=== PATIENT | male | born 1950 | race Caucasian/White ===

== ENCOUNTER → 2016-08-12 | Outpatient (REF) | payer MEDICARE, OTHER ==
[~2016-08-12] MED LIST: /ADVA50050 INH; /METO25TAB PO; /MOXI40TA OR; /OXYC15TA OR; /TIOT18INH INH; ACET-654 PO; ADV250INH INH; ALBU17IN INH; ALBU17IN2 INH; ALBU83IN IN; ALBUTEROL INH; ALBUTEROL LIQ INH; AMBI10TA PO; AMLO10TA OR; ASPI1TAB PO; CATA0.2T PO; CHAN0.5P6 PO; CLON-404 PO; CLON0.3T PO; COLA100C PO; COMBVENT INH; COMBVENT PO; DIAZ5TAB PO; DUONSOL INH; ENAL20TA PO; FURO40TA2 OR; HARV1TAB PO; HYDR-4266 PO; HYDR25TA PO; IPRASOL4 INH; LASI40TA OR; LASI40TA PO; LISI30TA4 PO; LISI40TA PO; LISI40TAB PO; LOPR100T PO; METO25TAB PO; METO50TA2 PO; OXYC15TA76 PO; OXYC5CAP4 OR; OXYC60TA PO; OXYCODONE PO; PANT40TA2 PO; POTA20TA2 OR; PRED10TA PO; PRED10TA2 OR; PRED20TA OR; PRED50TA OR; PRED5TAB PO; PROVENTIL INH; PROZ40CA PO; RANI150T PO; SOMA350T OR; SPIR25TA2 PO; STRI1AER2 IN; VASO20TA PO; XANA0.5T OR
[2016-08-12 18:18] LABS: INR 1.04
[2016-08-12 18:40] LABS: ALBUMIN 3.7 GM/DL (3.2-5.2); ALBUMIN/GLOBULIN RATIO 1.03 (1.00-1.93); ALKALINE PHOSPHATASE 80 U/L (45-117); ALT/SGPT 54 U/L (12-78); ANION GAP 9 MEQ/L (8-16); AST/SGOT 45 U/L (15-37); BLOOD UREA NITROGEN 18 MG/DL (7-18); CALCIUM LEVEL 9.1 MG/DL (8.8-10.2); CARBON DIOXIDE LEVEL 27 MEQ/L (21-32); CHLORIDE LEVEL 103 MEQ/L (98-107); CREATININE FOR GFR 1.19 MG/DL (0.70-1.30); FREE T4 1.51 NG/DL (0.76-1.46); GLOMERULAR FILTRATION RATE > 60.0 (>49); GLUCOSE, FASTING 95 MG/DL (80-110); SODIUM LEVEL 139 MEQ/L (136-145); TOTAL PROTEIN 7.3 GM/DL (6.4-8.2)
[2016-08-12 19:34] LABS: MEAN CORPUSCULAR HEMOGLOBIN 27.5 pg (27.0-33.0); MEAN CORPUSCULAR HGB CONC 32.3 g/dl (32.0-36.5); MEAN CORPUSCULAR VOLUME 85.2 fl (80.0-96.0); WHITE BLOOD COUNT 8.5 K/mm3 (4.0-10.0)
[2016-08-12 21:19] LABS: ANISOCYTOSIS 1+; BANDS 1 % (< 11); BASOPHILS 1 % (0-4); OVALOCYTES 1+; POIKILOCYTOSIS 1+
== END ==
LOC: M SFHCLERA 10:28
PROVIDERS: ATTEND Family Medicine
DX: R53.83 Other fatigue (principal); K21.9 Gastro-esophageal reflux disease without esophagitis; B18.2 Chronic viral hepatitis C; Z79.82 Long term (current) use of aspirin; Z79.899 Other long term (current) drug therapy

== ENCOUNTER → 2016-08-12 | Outpatient (CLI) | payer MEDICARE, OTHER ==
[~2016-08-12] MED LIST changes: -COLA100C PO; +COLA100C3 PO
--- NOTE | 2016-08-12 11:11 | REP ---
Clinical: Chest pain. Fatigue. Technique: PA and lateral. Comparison: 02/20/2016. Findings: Mediastinum and cardiac silhouette normal. Lung hirsch clear. No acute consolidation, effusion, or pneumothorax. Skeletal structures intact. Impression: No acute cardiopulmonary process or focal consolidation. Signed by Reyes Coe MD 08/12/2016 11:02 A
== END ==
LOC: M LRY 10:41
PROVIDERS: ATTEND Family Medicine
DX: R53.83 Other fatigue (principal); Z79.52 Long term (current) use of systemic steroids; Z79.82 Long term (current) use of aspirin; Z79.891 Long term (current) use of opiate analgesic; Z79.899 Other long term (current) drug therapy; K21.9 Gastro-esophageal reflux disease without esophagitis; B18.2 Chronic viral hepatitis C
CPT/HCPCS: 71020; 80053; 84439; 84443; 85007; 85027; 85610; 85730; G0463

== ENCOUNTER → 2016-08-27 | Outpatient (REF) | payer MEDICARE, OTHER ==
[2016-08-27 21:41] LABS: ALBUMIN 3.4 GM/DL (3.2-5.2); ALBUMIN/GLOBULIN RATIO 1.03 (1.00-1.93); BILIRUBIN,DIRECT 0.2 MG/DL (0.0-0.2); BILIRUBIN,TOTAL 0.5 MG/DL (0.2-1.0); TOTAL PROTEIN 6.7 GM/DL (6.4-8.2)
[2016-08-27 21:56] LABS: CARCINOEMBRYONIC ANTIGEN 1.1 NG/ML (<2.5)
== END ==
LOC: M SFHCLERA 14:42
PROVIDERS: ATTEND Family Medicine
DX: R16.0 Hepatomegaly, not elsewhere classified (principal); Z79.82 Long term (current) use of aspirin; Z79.52 Long term (current) use of systemic steroids; Z79.891 Long term (current) use of opiate analgesic; Z79.899 Other long term (current) drug therapy
CPT/HCPCS: 80076; 82105; 82378; G0463

== ENCOUNTER 2016-10-05 12:49 | Emergency (ER) | payer MEDICARE, OTHER ==
[~2016-10-05] VITALS: Ht 170.2 cm; Wt 91.2 kg
[2016-10-05] MEDS ORDERED: PRIL20CA9 PO (13:17)
[2016-10-05] MEDS ORDERED: MIRA33504 PO (13:17)
[2016-10-05] MEDS ORDERED: HYDR-4266 PO (13:17)
[2016-10-05] MEDS ORDERED: MILK1CAP PO (13:17)
[2016-10-05] MEDS ORDERED: METO100T PO (13:17)
[2016-10-05] MEDS ORDERED: XANA0.25 PO (13:17)
[2016-10-05] MEDS ORDERED: LISI40TAB PO (13:17)
[2016-10-05 14:23] LABS: ALBUMIN 2.8 GM/DL (3.2-5.2); ALBUMIN/GLOBULIN RATIO 0.85 (1.00-1.93); ALKALINE PHOSPHATASE 74 U/L (45-117); ALT/SGPT 68 U/L (12-78); ANION GAP 7 MEQ/L (8-16); AST/SGOT 59 U/L (15-37); BILIRUBIN,DIRECT 0.2 MG/DL (0.0-0.2); BLOOD UREA NITROGEN 24 MG/DL (7-18); CALCIUM LEVEL 8.3 MG/DL (8.8-10.2); CARBON DIOXIDE LEVEL 28 MEQ/L (21-32); CHLORIDE LEVEL 95 MEQ/L (98-107); CREATININE FOR GFR 1.26 MG/DL (0.70-1.30); GLOMERULAR FILTRATION RATE > 60.0 (>49); GLUCOSE, FASTING 100 MG/DL (80-110); SODIUM LEVEL 130 MEQ/L (136-145); TOTAL PROTEIN 6.1 GM/DL (6.4-8.2)
[2016-10-05 14:29] LABS: POTASSIUM SERUM 5.4 MEQ/L (3.5-5.1)
[2016-10-05] MEDS ORDERED: NS 1,000 ML IV SCH (14:42)
[2016-10-05] MEDS ORDERED: DEXTROSE 50% 50 ML SYRINGE IV STA (14:42)
[2016-10-05 14:44] LABS: BASO % 0.1 % (0.0-1.0); EOS # 0.1 K/mm3 (0.0-0.50); EOS % 0.9 % (0.0-3.0); LARGE UNSTAINED CELL # 0.2 K/mm3 (0.0-0.4); LARGE UNSTAINED CELL % 1.6 % (0.0-4.0); LYMPH # 1.7 K/mm3 (1.5-4.5); MEAN CORPUSCULAR HEMOGLOBIN 28.8 pg (27.0-33.0); MEAN CORPUSCULAR HGB CONC 34.5 g/dl (32.0-36.5); MEAN CORPUSCULAR VOLUME 83.7 fl (80.0-96.0); MONO # 0.9 K/mm3 (0.0-0.8); NEUTROPHILS # 7.1 K/mm3 (1.8-7.7); NEUTROPHILS % 71.4 % (36.0-66.0); PLATELET COUNT, AUTOMATED 220 k/mm3 (150-450); RED CELL DISTRIBUTION WIDTH 13.7 % (11.5-14.5)
[2016-10-05] MEDS ORDERED: oxyCODONE 5MG TAB PO ONE (14:45)
[2016-10-05] MEDS ORDERED: CALCIUM GLUCONATE 1,000 MG in D5W MINI-BAG PLUS 100 ML IV ONE (14:45)
[2016-10-05] MEDS ORDERED: HumuLIN R (REGULAR) INSULIN (NovoLIN R) **100U/ML** PER UNIT IV ONE (14:45)
[2016-10-05] MEDS ORDERED: GASTROGRAFIN SOLUTION 30ML (Q9963) As Ordered ONE (14:50)
[2016-10-05] MEDS ORDERED: GASTROGRAFIN SOLUTION 30ML PO ONE (15:00)
[2016-10-05] MEDS ORDERED: GASTROGRAFIN SOLUTION 30ML (Q9963) PO ONE (15:30)
[2016-10-05] MEDS ORDERED: ISOVUE-370 76% 100ML VIAL (Q9967) As Ordered ONE (16:10)
--- NOTE | 2016-10-05 16:44 | REP ---
Clinical: Acute right-sided abdominal pain. Technique: Axial contrast enhanced images from the lung bases to the pubic symphysis using oral and 100 ml Isovue 370 intravenous contrast material with coronal and sagittal re-formations. Findings: Lung bases demonstrate chronic interstitial changes with suspected emphysematous disease and bronchiectasis. Atherosclerotic changes to the coronary arteries and mitral valve annulus. Irregular low density area within the right lobe of the liver with areas of central calcification as well as abnormal arterial enhancing vasculature extending from the periphery of the liver consistent with malignancy as per prior MRI dated 08/26/2016. Spleen, pancreas, bilateral adrenal glands and right kidney are normal. Left kidney includes 4.4 cm complex lower pole hypodense lesion possibly complex cyst. The gallbladder demonstrates prominent mural enhancement and subtle surrounding infiltration raising the possibility of acute cholecystitis. However, these findings may be secondary to the surrounding ill-defined changes of the liver which is suspected to be neoplastic in nature. Mildly prominent lymph nodes in the region of the jeovany hepatis and celiac axis measuring up to 15 mm short axis diameter are also identified and again consistent with underlying neoplasm. The enteric system demonstrates diffuse fecal stasis and possible constipation without obstruction. The pelvis demonstrates normal bladder and age appropriate prostate/seminal vesicles. 2.5 cm periumbilical fat-containing hernia noted. No ascites. No free air. Atherosclerotic changes of the aorta and vasculature noted without aneurysm. Musculoskeletal structures demonstrate degenerative changes and evidence for prior posterior lumbar fusion. Impression: 1. Ill-defined low density liver lesion within the right lobe demonstrating small calcifications and irregular arterial vasculature extending from the liver cortex and gallbladder along with upper abdominal adenopathy is compatible with underlying hepatic malignancy including hepatocellular disease and/or cholangiocarcinoma. 2. The gallbladder demonstrates mild mural enhancement and subtle pericholecystic infiltration which may be secondary to the above mentioned presumably primary hepatic malignancy. However, acute acalculous cholecystitis be excluded. 3. 4.3 cm left kidney lesion may represent complex cyst versus mass. 5. 2.5 cm periumbilical fat-containing hernia. Signed by Reyes Coe MD 10/05/2016 04:35 P
[2016-10-05 17:23] LABS: ANION GAP 6 MEQ/L (8-16); BLOOD UREA NITROGEN 24 MG/DL (7-18); CALCIUM LEVEL 8.3 MG/DL (8.8-10.2); CARBON DIOXIDE LEVEL 33 MEQ/L (21-32); CHLORIDE LEVEL 92 MEQ/L (98-107); CREATININE FOR GFR 1.21 MG/DL (0.70-1.30); GLOMERULAR FILTRATION RATE > 60.0 (>49); GLUCOSE, FASTING 80 MG/DL (80-110); POTASSIUM SERUM 3.8 MEQ/L (3.5-5.1); SODIUM LEVEL 131 MEQ/L (136-145)
[2016-10-05 18:10] VITALS: BP 124/80
--- NOTE | 2016-10-06 10:58 | ED PDOC ---
Post-Departure Follow-Up dr steven faxed formal report of ct abd/p for fu Jie Kendall MD October 06, 2016 10:58
--- NOTE | 2016-10-06 14:22 | ECGEPIP ---
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
== END 2016-10-05 18:13 | disposition home or self-care (01) ==
LOC: M ED 13:36
DX: C22.0 Liver cell carcinoma (principal); E87.5 Hyperkalemia; R93.5 Abnormal findings on diagnostic imaging of other abdominal regions, including retroperitoneum; R11.0 Nausea; I50.9 Heart failure, unspecified; I11.0 Hypertensive heart disease with heart failure; I25.10 Atherosclerotic heart disease of native coronary artery without angina pectoris; B19.20 Unspecified viral hepatitis C without hepatic coma; K74.60 Unspecified cirrhosis of liver; K21.9 Gastro-esophageal reflux disease without esophagitis; Z95.5 Presence of coronary angioplasty implant and graft; F17.200 Nicotine dependence, unspecified, uncomplicated; Z88.8 Allergy status to other drugs, medicaments and biological substances; Z88.0 Allergy status to penicillin; Z79.899 Other long term (current) drug therapy; Z79.891 Long term (current) use of opiate analgesic
CPT/HCPCS: 36415; 74177; 80048; 80076; 81001; 81002; 82550; 83690; 85025; 87086; 93005; 93041; 94760; 96374; 96375; 99285; J0610; Q9963; Q9967

== ENCOUNTER → 2016-10-29 | Outpatient (CLI) | payer MEDICARE ==
[~2016-10-29] MED LIST changes: +METO100T PO; +MILK1CAP PO; +MIRA33504 PO; +PRIL20CA9 PO; +XANA0.25 PO
[2016-10-29 11:18] LABS: BLOOD UREA NITROGEN 15 MG/DL (7-18); CREATININE FOR GFR 1.01 MG/DL (0.70-1.30); GLOMERULAR FILTRATION RATE > 60.0 (>49)
== END ==
LOC: M LAB 10:21
PROVIDERS: ATTEND Radiology Vascular & Interventional Radiology
DX: C22.0 Liver cell carcinoma (principal)

== ENCOUNTER → 2016-11-09 | Outpatient (REF) | payer MEDICARE, OTHER ==
[~2016-11-09] MED LIST changes: +AMLO5TAB2 PO; +ATOR1TAB21 PO; -CLON-404 PO; -COLA100C3 PO; +COLA100C5 PO; +DOXY-278 PO; +FURO20TA2 PO; +HYDR-3910 PO; -HYDR-4266 PO; +HYDR12CA PO; +LEVO750T13 PO; +METH4PACK; -METO100T PO; +METO100T5 PO; -METO50TA2 PO; +METO50TA7 PO; +MOTR200T44 PO; +PRED10TA2 PO; +SPIR1AER INH; +TIOT18INH INH
[2016-11-09 12:18] LABS: MEAN CORPUSCULAR HEMOGLOBIN 28.2 pg (27.0-33.0); MEAN CORPUSCULAR HGB CONC 33.1 g/dl (32.0-36.5); MEAN CORPUSCULAR VOLUME 85.2 fl (80.0-96.0); RED CELL DISTRIBUTION WIDTH 13.8 % (11.5-14.5); WHITE BLOOD COUNT 6.1 K/mm3 (4.0-10.0)
[2016-11-09 12:51] LABS: ALBUMIN 3.3 GM/DL (3.2-5.2); ALBUMIN/GLOBULIN RATIO 0.87 (1.00-1.93); ALKALINE PHOSPHATASE 76 U/L (45-117); ALT/SGPT 36 U/L (12-78); ANION GAP 9 MEQ/L (8-16); AST/SGOT 28 U/L (15-37); BILIRUBIN,TOTAL 0.5 MG/DL (0.2-1.0); BLOOD UREA NITROGEN 12 MG/DL (7-18); CALCIUM LEVEL 8.6 MG/DL (8.8-10.2); CARBON DIOXIDE LEVEL 25 MEQ/L (21-32); CHLORIDE LEVEL 107 MEQ/L (98-107); CREATININE FOR GFR 0.83 MG/DL (0.70-1.30); GLOMERULAR FILTRATION RATE > 60.0 (>49); GLUCOSE, FASTING 95 MG/DL (80-110); POTASSIUM SERUM 4.3 MEQ/L (3.5-5.1); SODIUM LEVEL 141 MEQ/L (136-145); TOTAL PROTEIN 7.1 GM/DL (6.4-8.2)
== END ==
LOC: M SFHCLERA 09:13
PROVIDERS: ATTEND Family Medicine
DX: C22.0 Liver cell carcinoma (principal)
CPT/HCPCS: 80053; 82105; 85027; G0463

== ENCOUNTER → 2016-11-22 | Outpatient (REF) | payer MEDICARE, OTHER ==
[2016-11-22 17:59] LABS: MEAN CORPUSCULAR HEMOGLOBIN 27.6 pg (27.0-33.0); MEAN CORPUSCULAR HGB CONC 32.4 g/dl (32.0-36.5); MEAN CORPUSCULAR VOLUME 85.5 fl (80.0-96.0); RED CELL DISTRIBUTION WIDTH 13.8 % (11.5-14.5); WHITE BLOOD COUNT 6.5 K/mm3 (4.0-10.0)
== END ==
LOC: M SFHCLERA 10:40
PROVIDERS: ATTEND Family Medicine
DX: D64.9 Anemia, unspecified (principal)

== ENCOUNTER → 2016-12-20 | Outpatient (REF) | payer MEDICARE, OTHER ==
[2016-12-20 20:46] LABS: ANION GAP 6 MEQ/L (8-16); BLOOD UREA NITROGEN 11 MG/DL (7-18); CALCIUM LEVEL 8.8 MG/DL (8.8-10.2); CARBON DIOXIDE LEVEL 33 MEQ/L (21-32); CHLORIDE LEVEL 102 MEQ/L (98-107); CREATININE FOR GFR 0.84 MG/DL (0.70-1.30); GLOMERULAR FILTRATION RATE > 60.0 (>49); GLUCOSE, FASTING 95 MG/DL (80-110); POTASSIUM SERUM 4.7 MEQ/L (3.5-5.1); SODIUM LEVEL 141 MEQ/L (136-145)
== END ==
LOC: M SFHCLERA 15:20
PROVIDERS: ATTEND Family Medicine
DX: I10 Essential (primary) hypertension (principal)
CPT/HCPCS: 80048; G0463

== ENCOUNTER → 2017-01-10 | Outpatient (REF) | payer MEDICARE, OTHER | LOC: M SFHCLERA 16:31 | PROVIDERS: ATTEND Family Medicine | DX: R30.0 Dysuria (principal) | CPT/HCPCS: 81001; 81002; 87086; G0463 ==

== ENCOUNTER 2017-01-25 17:13 | Emergency (ER) | payer MEDICARE ==
[~2017-01-25] VITALS: Ht 170.2 cm; Wt 87.7 kg
[~2017-01-25 17:13] MED LIST changes: -AMLO5TAB2 PO; -ATOR1TAB21 PO; -DOXY-278 PO; -FURO20TA2 PO; -HYDR12CA PO; -LEVO750T13 PO; -METH4PACK; -MOTR200T44 PO; -PRED10TA2 PO; -SPIR1AER INH; -TIOT18INH INH
[2017-01-25] MEDS ORDERED: NS 1,000 ML IV SCH (17:50)
[2017-01-25] MEDS ORDERED: ASPIRIN 81 MG CHEW TABLET PO ONE (18:00)
[2017-01-25] MEDS ORDERED: GI COCKTAIL 50ML BTL(HYOSCYAMINE/MAALOX/LIDOCAINE VISCOUS)(1:3:1) PO ONE (18:00)
[2017-01-25 18:02] LABS: VENOUS BASE EXCESS 3.3 (-2.0-2.0); VENOUS O2 SATURATION 75.7 % (60.0-80.0); VENOUS PARTIAL PRESSURE CO2 57.2 mmHg (38.0-50.0); VENOUS PARTIAL PRESSURE O2 41.5 mmHg (30.0-50.0); VENOUS STANDARD HCO3 26.8 MEQ/L; VENOUS TOTAL CO2 32.3 MEQ/L (24.0-28.0)
[2017-01-25 18:08] LABS: BASO % 0.3 % (0.0-1.0); EOS # 0.1 K/mm3 (0.0-0.50); LARGE UNSTAINED CELL # 0.1 K/mm3 (0.0-0.4); LARGE UNSTAINED CELL % 1.8 % (0.0-4.0); LYMPH # 0.8 K/mm3 (1.5-4.5); LYMPH % 12.4 % (24.0-44.0); MEAN CORPUSCULAR HEMOGLOBIN 27.6 pg (27.0-33.0); MEAN CORPUSCULAR HGB CONC 33.2 g/dl (32.0-36.5); MEAN CORPUSCULAR VOLUME 83.3 fl (80.0-96.0); MONO # 0.5 K/mm3 (0.0-0.8); MONO % 9.1 % (0.0-5.0); NEUTROPHILS # 4.4 K/mm3 (1.8-7.7); NEUTROPHILS % 74.4 % (36.0-66.0); RED CELL DISTRIBUTION WIDTH 14.9 % (11.5-14.5); WHITE BLOOD COUNT 5.8 K/mm3 (4.0-10.0)
[2017-01-25 18:10] LABS: ADD MORPHOLOGY? NO; PLATELET COUNT, AUTOMATED 95 k/mm3 (150-450)
[2017-01-25] MEDS ORDERED: HYDR12CA PO (18:10)
[2017-01-25] MEDS ORDERED: FURO20TA2 PO (18:10)
[2017-01-25] MEDS ORDERED: METH4PACK (18:10)
[2017-01-25 18:12] LABS: ALBUMIN 3.2 GM/DL (3.2-5.2); ALKALINE PHOSPHATASE 128 U/L (45-117); ALT/SGPT 67 U/L (12-78); ANION GAP 7 MEQ/L (8-16); AST/SGOT 67 U/L (15-37); BILIRUBIN,DIRECT 0.3 MG/DL (0.0-0.2); BILIRUBIN,TOTAL 0.8 MG/DL (0.2-1.0); BLOOD UREA NITROGEN 11 MG/DL (7-18); CALCIUM LEVEL 8.5 MG/DL (8.8-10.2); CARBON DIOXIDE LEVEL 30 MEQ/L (21-32); CHLORIDE LEVEL 101 MEQ/L (98-107); CREATININE FOR GFR 0.82 MG/DL (0.70-1.30); GLOMERULAR FILTRATION RATE > 60.0 (>49); GLUCOSE, FASTING 94 MG/DL (80-110); POTASSIUM SERUM 4.1 MEQ/L (3.5-5.1); SODIUM LEVEL 138 MEQ/L (136-145); TOTAL PROTEIN 7.2 GM/DL (6.4-8.2)
[2017-01-25] MEDS ORDERED: **hydrALAZINE HCL** 25 MG TAB PO ONE (18:30)
[2017-01-25] MEDS ORDERED: LISINOPRIL 40 MG TAB PO ONE (18:30)
[2017-01-25] MEDS ORDERED: METOPROLOL TARTRATE 100 MG TAB PO ONE (18:30)
[2017-01-25 18:45] VITALS: BP 174/95
[2017-01-25] MEDS ORDERED: LISINOPRIL 10 MG TAB PO ONE (18:45)
[2017-01-25] MEDS ORDERED: METOPROLOL TART 50 MG TAB PO ONE (18:45)
[2017-01-25] MEDS ORDERED: LISI40TAB PO (18:50)
[2017-01-25] MEDS ORDERED: TIOT18INH INH (18:50)
[2017-01-25 22:39] VITALS: BP 145/70
--- NOTE | 2017-01-26 08:07 | REP ---
Portable chest, 06:12 p.m., single AP view: Comparison is 08/12/2016. The lung hirsch are clear. The cardiac size is normal. The dottie, mediastinum, and bony thorax are unremarkable. Impression: Negative portable chest. There is no interval change. Signed by Jean-Paul Alcaraz MD 01/26/2017 07:59 A
--- NOTE | 2017-01-27 07:12 | ECGEPIP ---
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
--- NOTE | 2017-01-27 07:14 | ECGEPIP ---
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
== END 2017-01-25 22:47 | disposition home or self-care (01) ==
LOC: EDBD 17:13 → M ED 17:13
DX: R07.89 Other chest pain (principal); R94.31 Abnormal electrocardiogram [ECG] [EKG]; I10 Essential (primary) hypertension; E78.5 Hyperlipidemia, unspecified; Z86.711 Personal history of pulmonary embolism; Z86.718 Personal history of other venous thrombosis and embolism; Z86.19 Personal history of other infectious and parasitic diseases; G89.29 Other chronic pain; Z95.5 Presence of coronary angioplasty implant and graft; Z87.891 Personal history of nicotine dependence; Z82.49 Family history of ischemic heart disease and other diseases of the circulatory system; Z79.899 Other long term (current) drug therapy; Z88.8 Allergy status to other drugs, medicaments and biological substances; Z88.0 Allergy status to penicillin

== ENCOUNTER → 2017-02-03 | Outpatient (CLI) | payer MEDICARE ==
[~2017-02-03] MED LIST changes: +AMLO5TAB2 PO; +ATOR1TAB21 PO; +DOXY-278 PO; +FURO20TA2 PO; +HYDR12CA PO; +LEVO750T13 PO; +METH4PACK; +MOTR200T44 PO; +PRED10TA2 PO; +SPIR1AER INH; +TIOT18INH INH
--- NOTE | 2017-02-03 14:38 | REP ---
CHEST, TWO VIEWS: Comparison 08/12/2016. There is no evidence of acute infiltrate. No pleural effusion is seen. The heart is normal in size. The mediastinal silhouette is unremarkable. The visualized osseous structures are intact. IMPRESSION: No acute pulmonary disease. Signed by Jean-Paul Brown MD 02/03/2017 05:42 P
== END ==
LOC: M LRY 11:33
PROVIDERS: ATTEND Family Medicine
DX: J18.9 Pneumonia, unspecified organism (principal)

== ENCOUNTER → 2017-02-03 | Outpatient (REF) | payer MEDICARE, OTHER ==
[2017-02-03 17:13] LABS: ALBUMIN/GLOBULIN RATIO 0.71 (1.00-1.93); ALKALINE PHOSPHATASE 105 U/L (45-117); ALT/SGPT 61 U/L (12-78); ANION GAP 8 MEQ/L (8-16); AST/SGOT 64 U/L (15-37); BILIRUBIN,TOTAL 1.3 MG/DL (0.2-1.0); BLOOD UREA NITROGEN 19 MG/DL (7-18); CALCIUM LEVEL 8.8 MG/DL (8.8-10.2); CARBON DIOXIDE LEVEL 31 MEQ/L (21-32); CHLORIDE LEVEL 97 MEQ/L (98-107); CREATININE FOR GFR 1.12 MG/DL (0.70-1.30); GLOMERULAR FILTRATION RATE > 60.0 (>49); GLUCOSE, FASTING 91 MG/DL (80-110); SODIUM LEVEL 136 MEQ/L (136-145); TOTAL PROTEIN 7.2 GM/DL (6.4-8.2)
[2017-02-03 17:18] LABS: POTASSIUM SERUM 5.3 MEQ/L (3.5-5.1)
[2017-02-03 21:42] LABS: MEAN CORPUSCULAR HEMOGLOBIN 28.8 pg (27.0-33.0); MEAN CORPUSCULAR HGB CONC 33.6 g/dl (32.0-36.5); MEAN CORPUSCULAR VOLUME 85.6 fl (80.0-96.0); RED CELL DISTRIBUTION WIDTH 14.9 % (11.5-14.5); WHITE BLOOD COUNT 7.9 K/mm3 (4.0-10.0)
[2017-02-03 23:51] LABS: BASOPHILS 1 % (0-4); EOSINOPHILS 2 % (0-5)
== END ==
LOC: M SFHCLERA 11:05
PROVIDERS: ATTEND Family Medicine
DX: J18.9 Pneumonia, unspecified organism (principal)

== ENCOUNTER 2017-02-04 16:01 | Inpatient (IN) | payer MEDICARE ==
[~2017-02-04] VITALS: Ht 170.2 cm; Wt 138.0 kg
[~2017-02-04 16:01] MED LIST changes: -AMLO5TAB2 PO; -ATOR1TAB21 PO; -DOXY-278 PO; -LEVO750T13 PO; -MOTR200T44 PO; -PRED10TA2 PO; -SPIR1AER INH
[2017-02-04] MEDS ORDERED: MOTR200T44 PO (16:15)
[2017-02-04] MEDS ORDERED: LEVO750T13 PO (16:15)
[2017-02-04] MEDS ORDERED: AMLO5TAB2 PO (16:15)
[2017-02-04] MEDS: IPRATROPIUM 0.5MG/ALBUTEROL 2.5MG INH SOL UD 3ML (DUONEB)(J7620) NEB SCH (16:47)
[2017-02-04 17:05] LABS: ABG BASE EXCESS 1.2 (-2.0-2.0); ABG HCO3 26.3 MEQ/L (22.0-26.0); ABG PARTIAL PRESSURE CO2 43.6 mmHg (35.0-45.0); ABG PARTIAL PRESSURE O2 178.7 mmHg (75.0-100.0); ABG STANDARD HCO3 25.6 MEQ/L (22.0-26.0); ABG TOTAL CO2 27.7 MEQ/L (23.0-31.0); ABG pH (ARTERIAL) 7.399 UNITS (7.350-7.450)
[2017-02-04 17:07] LABS: BASO % 0.3 % (0.0-1.0); EOS % 0.7 % (0.0-3.0); LARGE UNSTAINED CELL # 0.2 K/mm3 (0.0-0.4); LARGE UNSTAINED CELL % 2.4 % (0.0-4.0); LYMPH # 0.8 K/mm3 (1.5-4.5); LYMPH % 11.3 % (24.0-44.0); MEAN CORPUSCULAR HEMOGLOBIN 28.3 pg (27.0-33.0); MEAN CORPUSCULAR HGB CONC 34.6 g/dl (32.0-36.5); MEAN CORPUSCULAR VOLUME 81.9 fl (80.0-96.0); MONO # 0.5 K/mm3 (0.0-0.8); MONO % 7.4 % (0.0-5.0); NEUTROPHILS # 5.5 K/mm3 (1.8-7.7); NEUTROPHILS % 77.8 % (36.0-66.0); PLATELET COUNT, AUTOMATED 130 k/mm3 (150-450); RED CELL DISTRIBUTION WIDTH 14.5 % (11.5-14.5)
[2017-02-04 17:41] LABS: INR 0.95
[2017-02-04 18:03] LABS: ALBUMIN/GLOBULIN RATIO 0.71 (1.00-1.93); ALKALINE PHOSPHATASE 106 U/L (45-117); ALT/SGPT 55 U/L (12-78); ANION GAP 10 MEQ/L (8-16); AST/SGOT 58 U/L (15-37); BILIRUBIN,DIRECT 0.4 MG/DL (0.0-0.2); BILIRUBIN,TOTAL 0.9 MG/DL (0.2-1.0); BLOOD UREA NITROGEN 15 MG/DL (7-18); CALCIUM LEVEL 8.4 MG/DL (8.8-10.2); CARBON DIOXIDE LEVEL 30 MEQ/L (21-32); CHLORIDE LEVEL 94 MEQ/L (98-107); CREATININE FOR GFR 0.89 MG/DL (0.70-1.30); GLOMERULAR FILTRATION RATE > 60.0 (>49); GLUCOSE, FASTING 97 MG/DL (80-110); SODIUM LEVEL 134 MEQ/L (136-145); TOTAL PROTEIN 7.2 GM/DL (6.4-8.2)
[2017-02-04 18:11] LABS: POTASSIUM SERUM 3.9 MEQ/L (3.5-5.1)
[2017-02-04] MEDS ORDERED: ISOVUE-370 76% 100ML VIAL (Q9967) As Ordered ONE (19:18)
--- NOTE | 2017-02-04 19:50 | REPUSA ---
CT of the head Clinical history: altered mental status. Comparison: 10/06/2015. Technique: Multiple axial CT images were obtained through the head without administration of contrast . Findings: The ventricles and sulci are symmetric bilaterally. There is no evidence of acute hemorrhag e or infarct. Chronic low attenuation changes in the left basal ganglia are stable. There is no midli ne shift, mass effect, or extra-axial fluid collection. The osseous structures are unremarkable. The visualized paranasal sinuses and mastoid air cells are clear. Impression: No evidence of acute intracranial hemorrhage or infarct. Stable examination.
--- NOTE | 2017-02-04 20:10 | REPUSA ---
CT of the abdomen and pelvis with contrast Clinical statement: Pain. Liver cancer. Technique: Multiple axial CT images were obtained from the base of the lungs through the floor of the pelvis utilizing 5 mm axial slices after administration of nonionic intravenous contrast. Coronal an d sagittal reconstructions were also obtained. No comparison is available. Findings: Chest: The visualized lung bases are clear. Abdomen: There is an early enhancing hyper vascular lesion in the upper right lobe of the liver, rachel suring 2.6 x 2.9 cm. Lateral to this lesion is several prominent arterial structures demonstrate avid enhancement. The spleen, pancreas, kidneys, gallbladder, and adrenal glands are grossly unremarkable . There is a large exophytic cyst along the inferior pole of the left kidney measuring 3.8 x 4.5 cm. The aorta is within normal limits. There is no evidence of abdominal lymphadenopathy or ascites. Pelvis: The bowel is unremarkable, with no obstructive or inflammatory changes. There is a small umbi lical hernia containing only omental fat. The urinary bladder is within normal limits. The other pelv ic structures appear grossly intact. There is no evidence of pelvic lymphadenopathy or ascites. Bones: There are no suspicious osseous abnormalities seen. Lumbosacral fusion changes are intact. Impression: 1. Focal hypervascular lesion in the upper right lobe of the liver, suspicious for neoplasm. There ar e significant areas of hyper vascularity in the lateral aspect of the right upper lobe, which could b e related to the previously described mass. Biopsy could be considered. 2. Large simple cyst in the inferior pole of the left kidney. 3. No obstructive or inflammatory bowel changes. 4. Small umbilical hernia without bowel involvement. 5. Surgical fusion changes in the lumbosacral spine are intact.
--- NOTE | 2017-02-04 20:10 | REPUSA ---
CT of the chest Clinical statement: respiratory distress. Technique: Multiple axial CT images were obtained from the thoracic inlet through the upper abdomen a fter a bolus administration of nonionic intravenous contrast. Coronal and sagittal reconstructions we re also obtained. No comparison is available. Findings: The visualized pulmonary arteries and thoracic aorta and demonstrate normal caliber and con tour. Thyroid gland is within normal limits. There is no thoracic lymphadenopathy. There are no peric ardial or pleural effusions. There is moderate emphysema noted, with upper lobe predominance. Scatter ed small foci of ground glass infiltrates are seen throughout the lower lungs bilaterally. Limited im aging of the upper abdomen is unremarkable. There are no suspicious osseous lesions. Impression: 1. Diffuse scattered foci of ground glass infiltrates throughout the lungs bilaterally, predominant l ower lungs. This is a nonspecific finding, but could represent an infectious or inflammatory pulmonar y process. Follow-up is suggested as clinically indicated. 2. Moderate emphysema with upper lobe predominance.
[2017-02-04] MEDS ORDERED: LevoFLOXacin IV 750 MG in APPROPRIATE DILUENT 1 EA IV ONE (20:45)
[2017-02-04] MEDS ORDERED: ATOR1TAB21 PO (21:43)
[2017-02-04] MEDS ORDERED: SPIR1AER INH (21:43)
[2017-02-04] MEDS ORDERED: IPRATROPIUM 0.5MG/ALBUTEROL 2.5MG INH SOL UD 3ML (DUONEB)(J7620) NEB PRN (21:45)
[2017-02-04] MEDS ORDERED: IBUPROFEN 400 MG TAB PO PRN (22:15)
[2017-02-04] MEDS ORDERED: methylPREDNISolone INJ 125 MG/2 ML VIAL (J2930) IV ONE (22:15)
[2017-02-04] MEDS ORDERED: FUROSEMIDE 20 MG TAB PO PRN (22:15)
[2017-02-04] MEDS ORDERED: ALBUTEROL 90 MCG/ACT 8GM HFA INHALER INH PRN (22:15)
--- NOTE | 2017-02-04 23:07 | HPE ---
DATE OF ADMISSION: 02/04/2017 HOSPITALIST ATTENDING: Dr. Martín Medina. CHIEF COMPLAINT: Fever, shortness of breath, and cough. HISTORY OF PRESENTING ILLNESS: This is a 66-year-old male with history of hepatitis C, hepatocellular carcinoma , failed on Harvoni and had undergone transarterial chemoembolization (TACE) procedure with chemotherapy beads in September 2016, chronic obstructive pulmonary disease (COPD), follows at [facility] liver transplant center, hypertension, atrial fibrillation, congestive heart failure with concentric left ventricular hypertrophy (LVH) with preserved systolic function, history of coronary artery disease (CAD), myocardial infarction (PR) follows with Dr. Diop, [facility], not oxygen or steroid dependent, history of cerebrovascular accident (CVA), anxiety, depression, liver cirrhosis secondary to chronic hepatitis C and hepatocellular carcinoma, who presents to the emergency room with worsening shortness of breath for one day. The patient was hallucinating today and looked like he was spaced out according to the . He has been having cough symptoms with green productive sputum, as well as fevers low-grade, the highest being at 101 with chills at home and cold sweats. He has chronic headache, no diarrhea, no nausea or vomiting. Chest x-ray was performed by primary care physician, Rajwinder Pedro, and the patient was given antibiotics yesterday. Repeat blood test shows elevations in liver enzymes, prompting the primary care physician to tell the patient to come to the emergency room (ER) for further evaluation. The patient has been using his nebulizer treatment and was having more shortness of breath. In the ER, he was found to be 89% on room air. He was given nebulizer treatment every 20 minutes, intravenous (IV) Levaquin with significant improvement. Hospitalist service was called for admission for possible pneumonia with ground-glass opacity throughout the lungs bilaterally, predominantly in the lower lungs, infectious versus inflammatory, with significant moderate emphysema. PAST MEDICAL HISTORY: 1. Chronic hepatitis C. 2. Chronic liver cirrhosis. 3. Hepatocellular carcinoma status post TACE procedure in September 2016. Underwent radiation treatment in December 2016. 4. Hypertension. 5. Atrial fibrillation. 6. Coronary artery disease, myocardial infarction (PR), stent. 7. Congestive heart failure with preserve ejection fraction. 8. Hypertension. 9. Chronic obstructive pulmonary disease (COPD). 10. Kidney stones. 11. Cerebrovascular accident (CVA). 12. Anxiety, depression. ALLERGIES: 1. PENICILLIN causing throat swelling. 2. Hallucinations with INDERAL. 3. NITROGLYCERIN. PAST SURGICAL HISTORY: 1. Umbilical hernia repair in [id number]. 2. Appendectomy in 1989. 3. Last Extracorporeal shock wave lithotripsy (ESWL) 2009. 4. Lumbar laminectomy and fusion L2-S1 2007. 5. Cardiac stent 2014. 6. Colonoscopy 2016. 7. Superficial venous insufficiency bilateral lower extremities 2017. 8. Chemo-beads placed for hepatocellular carcinoma in 2017. HOME MEDICATIONS: - Ventolin HFA two puffs every four hours as needed - Xanax 0.25 at bedtime - Norvasc 5 mg daily - atorvastatin 20 mg at bedtime - Lasix 20 mg daily - hydralazine 25 mg four times a day - hydrochlorothiazide 12.5 daily - ibuprofen 200 mg every six hours - Levaquin 750 daily - lisinopril 40 at bedtime - metoprolol 100 twice a day - Prilosec 20 daily - oxycodone 15 mg three times a day - Spiriva one puff inhaled twice a day FAMILY HISTORY: Father and mother are . Siblings with hypertension, heart disease. One brother, one sister. Two sons, a daughter. SOCIAL HISTORY: Former smoker, quit three months ago. Patient has not had a drink, history of alcohol use but none in the past year. No recreational drug use. Currently . Finished high school. REVIEW OF SYSTEMS: Per history of present illness (HPI). PHYSICAL EXAMINATION: VITAL SIGNS: Temperature 98.1, pulse 116 sinus tachycardia, respiratory rate 16, blood pressure 118/61, 93% on two liters nasal cannula. GENERAL: The patient awake, alert, and oriented times three, answers questions appropriately. HEENT: Anicteric sclerae. No jaundice. Speaks in full sentences. Pupils are round, reactive to light and accommodation. Extraocular muscles are intact. Normocephalic, atraumatic. Dry mucous membranes. No pharyngeal erythema or tonsillar exudate. LUNGS: Diminished with fine crackles bilaterally at bases. HEART: S1, S2. Sinus tachycardia. ABDOMEN: Soft, slightly tender right upper quadrant. No rebound or guarding. Positive bowel sounds. No fluid wave. EXTREMITIES: Trace pitting edema. LABORATORY DATA: White count seven, hemoglobin 15, hematocrit 44, platelet count 130. 77% neutrophils. Sodium 134, potassium 3.9, chloride 94, bicarbonate 30, BUN 15, creatinine 0.89, glucose of 97, lactic acid of 3.2, calcium 8.4. Total bilirubin 0.9, direct bilirubin 0.4, AST 58, ALT 55, alkaline phosphatase 106, ammonia of 28. Total protein 7.2, albumin 3.0. MICROBIOLOGY: Two sets of blood cultures are negative. IMAGING: CT of the head 02/04/2017: No evidence of acute intracranial hemorrhage or infarct. Chest CT shows bilateral extensive ground-glass opacities throughout the lungs bilaterally. Nonspecific finding, could represent infectious or inflammatory pulmonary process. Moderate emphysema with upper lobe predominance. CT abdomen and pelvis 02/04/2017: Enhancing lesion upper right lobe measuring 2.6 x 2.9. Large exophytic cyst along the inferior pole of the left kidney 3.8 x 4.5 cm. No abdominal lymphadenopathy or ascites. Small umbilical hernia. No evidence of pelvic lymphadenopathy or ascites. ASSESSMENT AND PLAN: This is a 66-year-old male with history of chronic hepatitis C, liver cirrhosis, hepatocellular carcinoma, status post transarterial chemoembolization (TACE) procedure, radiation treatment in December 2016, follows at [facility] liver transplant facility, history of chronic obstructive pulmonary disease (COPD) follows with [facility], coronary artery disease (CAD), myocardial infarction, stent, congestive heart failure with preserved systolic function, hypertension, hyperlipidemia, follows with Dr. Diop [facility], presents to the emergency room with fever, cough, shortness of breath, was found to have possible pneumonia and worsening abnormal liver tests. The patient will be admitted as an inpatient for two midnights for the following issues: 1. Pneumonia: The patient has been given Levaquin due to history of penicillin and penicillin cross reactor allergies. Sputum culture. Change antibiotics accordingly. If pseudomonas is suspected, may need double coverage, or if no clinical improvement, may check MRSA and cover with Vanco. supplemental o2 Oxygen saturation 88% to 92%. Continue with full supportive care. 2. Hepatocellular carcinoma secondary to chronic hepatitis C with liver cirrhosis, along with thrombocytopenia: Monitor repeat liver function tests in the morning. No overt jaundice or ascites. If patient should develop increasing abdominal distention, may need to consider paracentesis and potentially placing Xifaxan. 3. Acute metabolic encephalopathy: Secondary to infectious process, potentially pneumonia. Hepatocellular carcinoma elevated bilirubin level. The patient's ammonia level is normal. CT head negative for metastatic lesions. 4. Systemic inflammatory response/sepsis with possible pneumonia as source: Lactic acidosis 3.2, tachycardia of 116. At this time, the patient will be treated with quinolone due to penicillin allergy. Continue supplemental oxygen. Blood pressure is well maintained but will give one liter of intravenous (IV) fluids. 5. History of coronary artery disease/myocardial infarction/congestive heart failure: Appears to be euvolemic at this time. May resume home medications. Continue on Norvasc, atorvastatin, lisinopril and metoprolol. 6. History of hepatitis C, liver cirrhosis, hepatocellular carcinoma: Outpatient records to be obtained from [facility]. 7. chronic obstructive pulmonary disease (COPD) exacerbation with wheezing. DuoNeb for now. iv solumedrol supplemental oxygen titrate to 88-92% continue with antibiotics with quinolone. 8. Anxiety/depression. Continue on Xanax. 9. Deep venous thrombosis (DVT) prophylaxis: compression stockings. avoid heparin products due to thrombocytopenia from long-standing liver cirrhosis. The patient will be assigned to Dr. Martín Medina at 10 p.m. 02/05/2017. ANTONY
[2017-02-05] MEDS ORDERED: oxyCODONE 5MG TAB PO ONE (01:00)
[2017-02-05] MEDS: IPRATROPIUM 0.5MG/ALBUTEROL 2.5MG INH SOL UD 3ML (DUONEB)(J7620) NEB SCH ×4 (01:48→20:10)
[2017-02-05 05:16] LABS: BASO % 0.4 % (0.0-1.0); EOS % 0.2 % (0.0-3.0); LARGE UNSTAINED CELL % 1.2 % (0.0-4.0); LYMPH # 0.2 K/mm3 (1.5-4.5); LYMPH % 7.3 % (24.0-44.0); MEAN CORPUSCULAR HEMOGLOBIN 28.3 pg (27.0-33.0); MEAN CORPUSCULAR HGB CONC 34.3 g/dl (32.0-36.5); MEAN CORPUSCULAR VOLUME 82.4 fl (80.0-96.0); MONO # 0.1 K/mm3 (0.0-0.8); MONO % 3.6 % (0.0-5.0); NEUTROPHILS # 2.9 K/mm3 (1.8-7.7); NEUTROPHILS % 87.4 % (36.0-66.0); PLATELET COUNT, AUTOMATED 114 k/mm3 (150-450); RED CELL DISTRIBUTION WIDTH 14.6 % (11.5-14.5); WHITE BLOOD COUNT 3.4 K/mm3 (4.0-10.0)
[2017-02-05 05:30] LABS: ANION GAP 9 MEQ/L (8-16); BLOOD UREA NITROGEN 14 MG/DL (7-18); CALCIUM LEVEL 9.4 MG/DL (8.8-10.2); CARBON DIOXIDE LEVEL 29 MEQ/L (21-32); CHLORIDE LEVEL 96 MEQ/L (98-107); CREATININE FOR GFR 1.02 MG/DL (0.70-1.30); GLOMERULAR FILTRATION RATE > 60.0 (>49); GLUCOSE, FASTING 142 MG/DL (80-110); POTASSIUM SERUM 4.4 MEQ/L (3.5-5.1); SODIUM LEVEL 134 MEQ/L (136-145)
[2017-02-05 05:32] LABS: ALBUMIN/GLOBULIN RATIO 0.67 (1.00-1.93); BILIRUBIN,DIRECT 0.3 MG/DL (0.0-0.2); BILIRUBIN,TOTAL 0.7 MG/DL (0.2-1.0); TOTAL PROTEIN 7.5 GM/DL (6.4-8.2)
[2017-02-05 06:00] VITALS: BP 130/85
[2017-02-05] MEDS: hydroCHLOROthiazide 12.5 MG CAPSULE PO SCH (09:43)
[2017-02-05] MEDS: OMEPRAZOLE 20 MG CAP PO SCH (09:45)
[2017-02-05] MEDS: oxyCODONE 5MG TAB PO SCH ×3 (09:45→20:42)
[2017-02-05] MEDS: **hydrALAZINE HCL** 25 MG TAB PO SCH ×4 (09:46→20:41)
[2017-02-05] MEDS: METOPROLOL TARTRATE 100 MG TAB PO SCH ×2 (09:47→20:41)
[2017-02-05] MEDS: HEPARIN SOD (PORCINE) 5000 UNITS/ML VIAL SQ SCH ×2 (09:52→20:42)
[2017-02-05] MEDS: methylPREDNISolone INJ 40 MG/1 ML VIAL (J2920) IV SCH ×2 (10:59→22:38)
[2017-02-05] MEDS ORDERED: amLODIPine 5 MG TAB PO SCH (12:00)
[2017-02-05] MEDS: SPIRIVA RESPIMAT INH SCH ×2 (12:43→20:13)
--- NOTE | 2017-02-05 13:07 | IPNPDOC ---
Date Seen The patient was seen on 02/05/17. VS, I&O, 24H, [facility] Vital Signs/I&O Vital Signs Date Time Temp Pulse Resp B/P (MAP) Pulse Ox O2 Delivery O2 Flow Rate FiO2 02/05/17 12:46 84 154/92 02/05/17 10:15 18 02/05/17 06:00 96.9 90 Room Air 02/04/17 23:52 2.0 I&O- Last 24 Hours up to 6 AM 02/06/17 06:00 Intake Total 240 ml Output Total 0 ml Balance 240 ml Laboratory Data 24H LABS Laboratory Tests 2 02/04/17 16:46: White Blood Count 7.0, Red Blood Count 5.38, Hemoglobin 15.2, Hematocrit 44.0, Mean Corpuscular Volume 81.9, Mean Corpuscular Hemoglobin 28.3, Mean Corpuscular Hemoglobin Concent 34.6, Red Cell Distribution Width 14.5, Platelet Count 130L, Neutrophils (%) (Auto) 77.8H, Lymphocytes (%) (Auto) 11.3L, Monocytes (%) (Auto) 7.4H, Eosinophils (%) (Auto) 0.7, Basophils (%) (Auto) 0.3 , Neutrophils # (Auto) 5.5, Lymphocytes # (Auto) 0.8L, Monocytes # (Auto) 0.5, Eosinophils # (Auto) 0.0, Basophils # (Auto) 0.0, Large Unclassified Cells % 2.4 , Large Unclassified Cells # 0.2 02/04/17 16:49: Blood Gas Bicarbonate Standard 25.6, Arterial Blood pH 7.399, Arterial Blood Partial Pressure CO2 43.6, Arterial Blood Partial Pressure O2 178.7H, Arterial Blood Total CO2 27.7, Arterial Blood HCO3 26.3H, Arterial Blood Base Excess 1.2 , Arterial Blood Oxygen Saturation 99.4H 02/04/17 17:25: Prothrombin Time 12.8, Prothromb Time International Ratio 0.95, Activated Partial Thromboplast Time 35.3, Anion Gap 10, Glomerular Filtration Rate > 60.0 , Lactic Acid Level 3.2*H, Calcium Level 8.4L, Aspartate Amino Transf (AST/SGOT ) 58H, Alanine Aminotransferase (ALT/SGPT) 55, Alkaline Phosphatase 106, Total Bilirubin 0.9, Direct Bilirubin 0.4H, Ammonia 28, Total Protein 7.2, Albumin 3.0L, Albumin/Globulin Ratio 0.71L 02/05/17 05:05: White Blood Count 3.4L, Red Blood Count 5.41, Hemoglobin 15.3, Hematocrit 44.6, Mean Corpuscular Volume 82.4, Mean Corpuscular Hemoglobin 28.3, Mean Corpuscular Hemoglobin Concent 34.3, Red Cell Distribution Width 14.6H, Platelet Count 114L, Neutrophils (%) (Auto) 87.4H, Lymphocytes (%) (Auto) 7.3L, Monocytes (%) (Auto) 3.6, Eosinophils (%) (Auto) 0.2, Basophils (%) (Auto) 0.4, Neutrophils # (Auto) 2.9, Lymphocytes # (Auto) 0.2L, Monocytes # (Auto) 0.1, Eosinophils # (Auto) 0.0, Basophils # (Auto) 0.0, Large Unclassified Cells % 1.2 , Large Unclassified Cells # 0.0, Anion Gap 9, Glomerular Filtration Rate > 60.0 , Calcium Level 9.4, Aspartate Amino Transf (AST/SGOT) 61H, Alanine Aminotransferase (ALT/SGPT) 55, Alkaline Phosphatase 110, Total Bilirubin 0.7, Direct Bilirubin 0.3H, Total Protein 7.5, Albumin 3.0L, Albumin/Globulin Ratio 0.67L, Blood Urea Nitrogen 14, Creatinine 1.02, Sodium Level 134L, Potassium Level 4.4, Chloride Level 96L, Carbon Dioxide Level 29 CBC/BMP Laboratory Tests 02/04/17 16:46 Red Blood Count 5.38, Mean Corpuscular Volume 81.9, Mean Corpuscular Hemoglobin 28.3, Mean Corpuscular Hemoglobin Concent 34.6, Red Cell Distribution Width 14.5 , Neutrophils (%) (Auto) 77.8 H, Lymphocytes (%) (Auto) 11.3 L, Monocytes (%) ( Auto) 7.4 H, Eosinophils (%) (Auto) 0.7, Basophils (%) (Auto) 0.3, Neutrophils # (Auto) 5.5, Lymphocytes # (Auto) 0.8 L, Monocytes # (Auto) 0.5, Eosinophils # (Auto) 0.0, Basophils # (Auto) 0.0 9/22/17 17:25 02/05/17 05:05 Red Blood Count 5.41, Mean Corpuscular Volume 82.4, Mean Corpuscular Hemoglobin 28.3, Mean Corpuscular Hemoglobin Concent 34.3, Red Cell Distribution Width 14.6 H, Neutrophils (%) (Auto) 87.4 H, Lymphocytes (%) (Auto) 7.3 L, Monocytes ( %) (Auto) 3.6, Eosinophils (%) (Auto) 0.2, Basophils (%) (Auto) 0.4, Neutrophils # (Auto) 2.9, Lymphocytes # (Auto) 0.2 L, Monocytes # (Auto) 0.1, Eosinophils # (Auto) 0.0, Basophils # (Auto) 0.0, Calcium Level 9.4 Microbiology Microbiology 02/04/17 Blood Culture, Received Pending 02/04/17 Blood Culture, Received Pending 02/05/17 Gram Stain - Final, Complete 02/05/17 Sputum Culture - Final, Complete 02/05/17 Influenza Virus Type A Antigen - Final, Complete 02/05/17 Influenza Virus Type B Antigen - Final, Complete TAMY RAYA DO Feb 05, 2017 13:07
[2017-02-05] MEDS ORDERED: diphenhydrAMINE 50 MG CAP PO STA (13:52)
--- NOTE | 2017-02-05 14:58 | REP ---
PORTABLE CHEST: Comparison 02/03/2017 There is no evidence of acute infiltrate. No pleural effusion is seen. The heart is normal in size. The mediastinal silhouette is unremarkable. The visualized osseous structures are intact. IMPRESSION: No acute pulmonary disease. Signed by Jean-Paul Brown MD 02/05/2017 07:43 P
[2017-02-05] MEDS: DOXYCYCLINE HYCLATE 100 MG in D5W MINI-BAG PLUS 100 ML IV SCH (15:13)
--- NOTE | 2017-02-05 15:30 | IPNPDOC ---
Date Seen The patient was seen on 02/05/17. Progress Note SUBJECTIVE: This is a 66-year-old male admitted with pneumonia and worsening abnormal liver tests. The patients states to be feeling better this AM. Is currently without oxygen supplementation. The patient states he can breathe better since he got up the floor. Denies any chest pain, shortness of breath. Patient is apprioately answering all questions this AM. The patient has appetite for breakfast and hasn't had his morning medication. Nurse denies any overnight events. OBJECTIVE PHYSICAL EXAMINATION: VITAL SIGNS: Please see below. GENERAL: The patient awake, alert, and oriented times three, answers questions appropriately. HEENT: Normocephalic, atraumatic. Dry mucous membranes. LUNGS: diffused diminished with fine crackles bilaterally HEART: S1, S2. Sinus tachycardia diminished heart sounds. ABDOMEN: Soft, slightly tender right upper quadrant. No rebound or guarding. Positive bowel sounds. LABORATORY DATA: Please see below. MICROBIOLOGY: Please see below. DVT prophylaxis ordered?:Y ASSESSMENT AND PLAN: This is a 66-year-old male admitted with pneumonia and worsening abnormal liver tests. 1. Pneumonia: Chest xray- Diffuse scattered foci of ground glass infiltrates throughout the lungs bilaterally, predominant lower lungs.The patient has been given Levaquin due to history of penicillin and penicillin cross reactor allergies. Sputum culture. Will start Doxycyline 100 mg IV BID today. Last Lactic Acids this AM was 3.2. 2. Hepatocellular carcinoma secondary to chronic hepatitis C with liver cirrhosis, along with thrombocytopenia: AST increased from 58 to 61. No overt jaundice or ascites. Will continue to monitor. 3. Acute metabolic encephalopathy: Secondary to infectious process, potentially pneumonia. Hepatocellular carcinoma elevated bilirubin level. The patient's ammonia level is normal. CT head negative for metastatic lesions. Patient is aaox3 this am, and wasn't in any acute distress. Will continue to monitor while inpatient. 4. Systemic inflammatory response/sepsis with possible pneumonia as source: At this time, the patient will be treated with quinolone due to penicillin allergy. Continue supplemental oxygen as needed. Blood pressure is well maintained this AM will continue to monitor. 5. History of coronary artery disease/myocardial infarction/congestive heart failure, Continue home medications: Norvasc, atorvastatin, lisinopril and metoprolol. 6. History of hepatitis C, liver cirrhosis, hepatocellular carcinoma: Outpatient records to be obtained from [facility]. 7. chronic obstructive pulmonary disease (COPD) exacerbation with wheezing. DuoNeb for now. iv solumedrol supplemental oxygen titrate to 88-92% continue with antibiotics with quinolone. Continue home medication Spirva BID 8. Anxiety/depression. Continue on Xanax. 9. Deep venous thrombosis (DVT) prophylaxis: compression stockings. avoid heparin products due to thrombocytopenia from long-standing liver cirrhosis. DISPOSITION: . VS, I&O, 24H, Fishbone Vital Signs/I&O Vital Signs Date Time Temp Pulse Resp B/P (MAP) Pulse Ox O2 Delivery O2 Flow Rate FiO2 02/05/17 14:00 98.0 79 17 91 Room Air 02/05/17 12:46 154/92 02/04/17 23:52 2.0 I&O- Last 24 Hours up to 6 AM 02/06/17 06:00 Intake Total 240 ml Output Total 0 ml Balance 240 ml Laboratory Data 24H LABS Laboratory Tests 2 02/04/17 16:46: White Blood Count 7.0, Red Blood Count 5.38, Hemoglobin 15.2, Hematocrit 44.0, Mean Corpuscular Volume 81.9, Mean Corpuscular Hemoglobin 28.3, Mean Corpuscular Hemoglobin Concent 34.6, Red Cell Distribution Width 14.5, Platelet Count 130L, Neutrophils (%) (Auto) 77.8H, Lymphocytes (%) (Auto) 11.3L, Monocytes (%) (Auto) 7.4H, Eosinophils (%) (Auto) 0.7, Basophils (%) (Auto) 0.3 , Neutrophils # (Auto) 5.5, Lymphocytes # (Auto) 0.8L, Monocytes # (Auto) 0.5, Eosinophils # (Auto) 0.0, Basophils # (Auto) 0.0, Large Unclassified Cells % 2.4 , Large Unclassified Cells # 0.2 02/04/17 16:49: Blood Gas Bicarbonate Standard 25.6, Arterial Blood pH 7.399, Arterial Blood Partial Pressure CO2 43.6, Arterial Blood Partial Pressure O2 178.7H, Arterial Blood Total CO2 27.7, Arterial Blood HCO3 26.3H, Arterial Blood Base Excess 1.2 , Arterial Blood Oxygen Saturation 99.4H 02/04/17 17:25: Prothrombin Time 12.8, Prothromb Time International Ratio 0.95, Activated Partial Thromboplast Time 35.3, Anion Gap 10, Glomerular Filtration Rate > 60.0 , Lactic Acid Level 3.2*H, Calcium Level 8.4L, Aspartate Amino Transf (AST/SGOT ) 58H, Alanine Aminotransferase (ALT/SGPT) 55, Alkaline Phosphatase 106, Total Bilirubin 0.9, Direct Bilirubin 0.4H, Ammonia 28, Total Protein 7.2, Albumin 3.0L, Albumin/Globulin Ratio 0.71L 02/05/17 05:05: White Blood Count 3.4L, Red Blood Count 5.41, Hemoglobin 15.3, Hematocrit 44.6, Mean Corpuscular Volume 82.4, Mean Corpuscular Hemoglobin 28.3, Mean Corpuscular Hemoglobin Concent 34.3, Red Cell Distribution Width 14.6H, Platelet Count 114L, Neutrophils (%) (Auto) 87.4H, Lymphocytes (%) (Auto) 7.3L, Monocytes (%) (Auto) 3.6, Eosinophils (%) (Auto) 0.2, Basophils (%) (Auto) 0.4, Neutrophils # (Auto) 2.9, Lymphocytes # (Auto) 0.2L, Monocytes # (Auto) 0.1, Eosinophils # (Auto) 0.0, Basophils # (Auto) 0.0, Large Unclassified Cells % 1.2 , Large Unclassified Cells # 0.0, Anion Gap 9, Glomerular Filtration Rate > 60.0 , Calcium Level 9.4, Aspartate Amino Transf (AST/SGOT) 61H, Alanine Aminotransferase (ALT/SGPT) 55, Alkaline Phosphatase 110, Total Bilirubin 0.7, Direct Bilirubin 0.3H, Total Protein 7.5, Albumin 3.0L, Albumin/Globulin Ratio 0.67L, Blood Urea Nitrogen 14, Creatinine 1.02, Sodium Level 134L, Potassium Level 4.4, Chloride Level 96L, Carbon Dioxide Level 29 02/05/17 13:47: Bedside Glucose (Misc Panel) 136H 02/05/17 14:27: Lactic Acid Level 3.9*H, Total Creatine Kinase 146, Creatine Kinase MB 3.6, Creatine Kinase MB Relative Index 2.46, Troponin I < 0.02 CBC/BMP Laboratory Tests 02/04/17 16:46 Red Blood Count 5.38, Mean Corpuscular Volume 81.9, Mean Corpuscular Hemoglobin 28.3, Mean Corpuscular Hemoglobin Concent 34.6, Red Cell Distribution Width 14.5 , Neutrophils (%) (Auto) 77.8 H, Lymphocytes (%) (Auto) 11.3 L, Monocytes (%) ( Auto) 7.4 H, Eosinophils (%) (Auto) 0.7, Basophils (%) (Auto) 0.3, Neutrophils # (Auto) 5.5, Lymphocytes # (Auto) 0.8 L, Monocytes # (Auto) 0.5, Eosinophils # (Auto) 0.0, Basophils # (Auto) 0.0 02/04/17 17:25 02/05/17 05:05 Red Blood Count 5.41, Mean Corpuscular Volume 82.4, Mean Corpuscular Hemoglobin 28.3, Mean Corpuscular Hemoglobin Concent 34.3, Red Cell Distribution Width 14.6 H, Neutrophils (%) (Auto) 87.4 H, Lymphocytes (%) (Auto) 7.3 L, Monocytes ( %) (Auto) 3.6, Eosinophils (%) (Auto) 0.2, Basophils (%) (Auto) 0.4, Neutrophils # (Auto) 2.9, Lymphocytes # (Auto) 0.2 L, Monocytes # (Auto) 0.1, Eosinophils # (Auto) 0.0, Basophils # (Auto) 0.0, Calcium Level 9.4 Microbiology Microbiology 02/04/17 Blood Culture, Received Pending 02/04/17 Blood Culture, Received Pending 02/05/17 Gram Stain - Final, Complete 02/05/17 Sputum Culture - Final, Complete 02/05/17 Influenza Virus Type A Antigen - Final, Complete 02/05/17 Influenza Virus Type B Antigen - Final, Complete TAMY RAYA DO Feb 05, 2017 15:30
[2017-02-05] MEDS ORDERED: MOXIFLOXACIN HCL 400 MG in APPROPRIATE DILUENT 1 EA IV SCH (18:00)
[2017-02-05] MEDS ORDERED: ATORVASTATIN 20 MG TAB PO SCH (21:00)
[2017-02-05] MEDS ORDERED: ALPRAZolam 0.25 MG TAB PO SCH (21:00)
[2017-02-05] MEDS ORDERED: LISINOPRIL 40 MG TAB PO SCH (21:00)
[2017-02-05 22:00] VITALS: BP 146/77
[2017-02-06] MEDS: DOXYCYCLINE HYCLATE 100 MG in D5W MINI-BAG PLUS 100 ML IV SCH (01:18)
[2017-02-06] MEDS: IPRATROPIUM 0.5MG/ALBUTEROL 2.5MG INH SOL UD 3ML (DUONEB)(J7620) NEB SCH ×2 (02:00→07:53)
[2017-02-06 06:00] VITALS: BP 130/74
[2017-02-06 06:33] LABS: BASO % 0.1 % (0.0-1.0); EOS % 0.3 % (0.0-3.0); LARGE UNSTAINED CELL # 0.1 K/mm3 (0.0-0.4); LARGE UNSTAINED CELL % 0.9 % (0.0-4.0); LYMPH # 0.4 K/mm3 (1.5-4.5); LYMPH % 3.5 % (24.0-44.0); MEAN CORPUSCULAR HEMOGLOBIN 28.3 pg (27.0-33.0); MEAN CORPUSCULAR HGB CONC 34.4 g/dl (32.0-36.5); MEAN CORPUSCULAR VOLUME 82.1 fl (80.0-96.0); MONO # 0.5 K/mm3 (0.0-0.8); MONO % 3.9 % (0.0-5.0); NEUTROPHILS # 11.1 K/mm3 (1.8-7.7); NEUTROPHILS % 91.3 % (36.0-66.0); PLATELET COUNT, AUTOMATED 172 k/mm3 (150-450); RED CELL DISTRIBUTION WIDTH 14.8 % (11.5-14.5); WHITE BLOOD COUNT 12.2 K/mm3 (4.0-10.0)
[2017-02-06 06:45] LABS: ALBUMIN 3.1 GM/DL (3.2-5.2); ALBUMIN/GLOBULIN RATIO 0.72 (1.00-1.93); ALKALINE PHOSPHATASE 126 U/L (45-117); ALT/SGPT 60 U/L (12-78); ANION GAP 9 MEQ/L (8-16); AST/SGOT 62 U/L (15-37); BILIRUBIN,DIRECT 0.3 MG/DL (0.0-0.2); BILIRUBIN,TOTAL 0.7 MG/DL (0.2-1.0); CALCIUM LEVEL 8.4 MG/DL (8.8-10.2); CARBON DIOXIDE LEVEL 28 MEQ/L (21-32); CHLORIDE LEVEL 99 MEQ/L (98-107); CREATININE FOR GFR 0.99 MG/DL (0.70-1.30); GLOMERULAR FILTRATION RATE > 60.0 (>49); GLUCOSE, FASTING 125 MG/DL (80-110); POTASSIUM SERUM 4.8 MEQ/L (3.5-5.1); SODIUM LEVEL 136 MEQ/L (136-145); TOTAL PROTEIN 7.4 GM/DL (6.4-8.2)
[2017-02-06 07:03] LABS: BLOOD UREA NITROGEN 22 MG/DL (7-18)
[2017-02-06] MEDS: SPIRIVA RESPIMAT INH SCH (07:53)
[2017-02-06] MEDS ORDERED: DOXY-278 PO (08:28)
[2017-02-06] MEDS ORDERED: PRED10TA2 PO (08:29)
[2017-02-06] MEDS: hydroCHLOROthiazide 12.5 MG CAPSULE PO SCH (08:59)
[2017-02-06] MEDS: OMEPRAZOLE 20 MG CAP PO SCH (08:59)
[2017-02-06 09:00] VITALS: BP 132/68
[2017-02-06] MEDS: **hydrALAZINE HCL** 25 MG TAB PO SCH (09:00)
[2017-02-06] MEDS: METOPROLOL TARTRATE 100 MG TAB PO SCH (09:00)
[2017-02-06] MEDS: oxyCODONE 5MG TAB PO SCH (09:01)
[2017-02-06] MEDS: HEPARIN SOD (PORCINE) 5000 UNITS/ML VIAL SQ SCH (09:01)
--- NOTE | 2017-02-06 17:13 | DSES ---
DATE OF ADMISSION: 02/04/2017 DATE OF DISCHARGE: 02/06/2017 DISCHARGE DIAGNOSIS: Community-acquired pneumonia. SECONDARY DIAGNOSES: 1. Possible atypical pneumonia. 2. Chronic obstructive pulmonary disease (COPD). 3. Metabolic encephalopathy. 4. Hypertension. 5. Gastroesophageal reflux disease. 6. Lactic acidosis. 7. Chronic hepatitis C. 8. Chronic liver cirrhosis. 9. Hepatocellular carcinoma status post bead chemotherapy in September 2016. 10. Atrial fibrillation. 11. Coronary artery disease. 12. Diastolic congestive heart failure. 13. Nephrolithiasis. 14. Cerebrovascular accident (CVA). 15. Anxiety, depression. HOSPITAL COURSE: The patient is a 66-year-old man who initially presented through his primary care provider with shortness of breath and cough. Laboratory studies were checked and there was concern for blood work abnormality, and the patient was referred to the emergency room (ER). On his presentation, he was found to be mildly hypoxic, as well as cough, tachycardic. He was admitted to the hospitalist service and started on empiric steroids and antibiotics, as well as nebulizer treatments. He did quickly improve. During his stay, he did have a CT scan of his head which revealed no evidence of acute intracranial hemorrhage or infarct. It was a stable exam. He also did have a CT scan of his chest which revealed diffuse scattered foci of ground-glass infiltrates throughout both lungs bilaterally, predominant in the lower lungs, infectious versus inflammatory pulmonary process. Moderate emphysema with upper lobe predominance. Did have a CT scan of the abdomen and pelvis which revealed focal hypervascular lesion in the upper right lobe of the liver suspicious for neoplasm, hypervascularity in the lateral aspect of the right upper lobe, large simple cyst in the inferior pole of the left kidney, small umbilical hernia without abdominal involvement. Surgical fusion changes in the lumbosacral spine. ASSESSMENT AND PLAN: This is a 66-year-old man who presents with shortness of breath, cough, and metabolic encephalopathy. 1. Metabolic encephalopathy: Likely related to respiratory infection, possibly atypical pneumonia. The patient's symptoms quickly improved while in hospital. There is also the possibility it may have been adverse reaction to levofloxacin. He did develop a mild rash after levofloxacin while in the hospital, and as such he was transitioned to doxycycline 100 mg twice a day which he had no further reaction to, and tolerated it quite well. His medical delirium associated with his infection versus medication adverse effect including seeing animated characters running around the room. 2. Atypical pneumonia: Given the diffuse ground-glass opacities, his hypoxia, cough, and fevers at home, this seems like the most likely etiology. He did respond to antibiotics. His mild leukocytosis may be related to steroid use, but other humphrey his cultures have thus far been negative and the (please clarify) is negative. He has been afebrile for 24 hours and is at his baseline respiratory status. No longer requiring oxygen. 3. Hepatocellular carcinoma: Related to chronic hepatitis C. The patient's liver function appeared to be stable. He did not have any increased abdominal distention. He follows normally at a transplant center. Recommend continued outpatient followup regarding his liver cirrhosis. 4. Chronic obstructive pulmonary disease (COPD): Patient noted to have oxygen requirement, increased cough. There was certainly concern for decompensation of his COPD. He was placed on IV Solu-Medrol. He did improve with nebulizer treatments with steroids. At this time, he is being discharged home on a prednisone taper and continuing his regular home inhalers. His respiratory status is at his baseline. 5. Anxiety: Continue with Xanax at bedtime as needed. 6. Diastolic congestive heart failure. 7. Hypertension, controlled with lisinopril and Lasix. The patient is on amlodipine. 8. Coronary artery disease: The patient is on a statin and a beta yamil. 9. Gastroesophageal reflux disease: The patient is on omeprazole. DISPOSITION: The patient is being discharged home to the care of his family. He is at his functional baseline. His clinical symptoms have resolved. 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 His activity and diet are prior to admission. He is to return to the emergency room (ER) if symptoms worsen. DISCHARGE MEDICATIONS: - doxycycline 100 mg every 12 hours for 10 days - prednisone taper 40 mg for three days, 30 mg for three days, 20 mg for three days, and 10 mg for three days and stop - Ventolin HFA two puffs every four hours as needed for shortness of breath - DuoNeb solution nebulizer inhaled four times daily as needed for shortness of breath - Xanax 0.25 mg at bedtime - amlodipine 5 mg daily at noon - atorvastatin 20 mg at bedtime - Lasix 20 mg daily as needed for edema - hydralazine 25 mg four times daily - hydrochlorothiazide 12.5 mg daily - ibuprofen 400 mg every six hours as needed for fever - lisinopril 40 mg at bedtime - metoprolol tartrate 100 mg by mouth twice a day - omeprazole 20 mg daily - oxycodone 15 mg three times a day - Spiriva one puff inhaled twice a day Greater than 30 minutes were spent organizing disposition.
--- NOTE | 2017-02-06 17:33 | ECGEPIP ---
Stationary ECG Study [facility] Test Date: 2017-02-05 Pat Name: SHARMILA GALAN Department: [facility] Room: [place] [address] Gender: M [employer]: : 1950 Requested By: REMINGTON ARREOLA Order Number: [id number] Reading MD: Gustavo Paz Measurements Intervals [place] Rate: 76 P: 71 W[place]: 155 QRS: 29 QRSD: 110 T: 61 QT: 413 QTc: 465 Interpretive Statements Normal sinus rhythm Early anterior R wave progression Nonspecific ST-T wave abnormalities No significant change when compared to prior tracing of 01/25/2017 Electronically Signed On 02-06-2017 17:33:37 EDT by Gustavo Paz
[2017-02-10 11:46] LABS: SPECIMEN SOURCE URINE
== END 2017-02-06 09:41 | disposition home or self-care (01) | DRG 190 ==
LOC: M ED 16:01 → M ED INP 21:37 → M MSPAV 02-05 00:07
PROVIDERS: ADMIT General Practice; ATTEND Internal Medicine
DX: J44.0 Chronic obstructive pulmonary disease with (acute) lower respiratory infection (principal); G93.41 Metabolic encephalopathy; J18.9 Pneumonia, unspecified organism; C22.9 Malignant neoplasm of liver, not specified as primary or secondary; I50.32 Chronic diastolic (congestive) heart failure; E87.2 Acidosis; J44.1 Chronic obstructive pulmonary disease with (acute) exacerbation; B18.2 Chronic viral hepatitis C; I11.9 Hypertensive heart disease without heart failure; K21.9 Gastro-esophageal reflux disease without esophagitis; I48.91 Unspecified atrial fibrillation; I25.10 Atherosclerotic heart disease of native coronary artery without angina pectoris; N20.0 Calculus of kidney; F41.9 Anxiety disorder, unspecified; F32.9 Major depressive disorder, single episode, unspecified; Z86.73 Personal history of transient ischemic attack (TIA), and cerebral infarction without residual deficits; Z79.899 Other long term (current) drug therapy; I25.2 Old myocardial infarction; Z88.0 Allergy status to penicillin; Z88.8 Allergy status to other drugs, medicaments and biological substances; Z79.01 Long term (current) use of anticoagulants; Z87.891 Personal history of nicotine dependence

== ENCOUNTER 2017-05-02 16:08 | Observation (INO) | payer MEDICARE ==
[~2017-05-02] VITALS: Ht 167.6 cm; Wt 90.1 kg
[~2017-05-02 16:08] MED LIST changes: +AMLO5TAB2 PO; +ATOR1TAB21 PO; +DOXY-278 PO; +LEVO750T13 PO; +MOTR200T44 PO; +PRED10TA2 PO; +SPIR1AER INH
[2017-05-02] MEDS ORDERED: ONDANSETRON 4MG/2ML VIAL (J2405) IV ONE (17:00)
[2017-05-02 17:07] LABS: BASO % 0.6 % (0.0-1.0); EOS % 0.9 % (0.0-3.0); IMMATURE GRANULOCYTE % 0.3 % (0-0); LYMPH # 0.8 10^3/uL (1.5-4.5); LYMPH % 24.1 % (24.0-44.0); MEAN CORPUSCULAR HEMOGLOBIN 27.7 pg (27.0-33.0); MEAN CORPUSCULAR VOLUME 84.1 fl (80.0-96.0); MONO # 0.5 10^3/uL (0.0-0.8); MONO % 14.6 % (0.0-5.0); NEUTROPHILS % 59.5 % (36.0-66.0); PLATELET COUNT, AUTOMATED 111 10^3/uL (150-450); RED CELL DISTRIBUTION WIDTH 15.2 % (11.5-14.5); WHITE BLOOD COUNT 3.3 10^3/uL (4.0-10.0)
[2017-05-02] MEDS: NS 1,000 ML IV SCH (17:22)
[2017-05-02] MEDS: MORPHINE 4 MG/ML 1ML SYRINGE IV PRN ×3 (17:22→19:32)
[2017-05-02 17:50] LABS: INR 1.06
[2017-05-02 18:03] LABS: ALBUMIN/GLOBULIN RATIO 0.73 (1.00-1.93); ALKALINE PHOSPHATASE 104 U/L (45-117); ALT/SGPT 70 U/L (12-78); AMYLASE 42 U/L (25-115); ANION GAP 7 MEQ/L (8-16); AST/SGOT 86 U/L (7-37); BILIRUBIN,DIRECT 0.2 MG/DL (0.0-0.2); BILIRUBIN,TOTAL 0.8 MG/DL (0.2-1.0); BLOOD UREA NITROGEN 9 MG/DL (7-18); CALCIUM LEVEL 8.1 MG/DL (8.8-10.2); CARBON DIOXIDE LEVEL 27 MEQ/L (21-32); CHLORIDE LEVEL 105 MEQ/L (98-107); CREATININE FOR GFR 0.69 MG/DL (0.70-1.30); GLOMERULAR FILTRATION RATE > 60.0 (>49); GLUCOSE, FASTING 87 MG/DL (80-110); POTASSIUM SERUM 3.9 MEQ/L (3.5-5.1); SODIUM LEVEL 139 MEQ/L (136-145); TOTAL PROTEIN 7.1 GM/DL (6.4-8.2)
[2017-05-02] MEDS ORDERED: ISOVUE-370 76% 100ML VIAL (Q9967) As Ordered ONE (18:14)
--- NOTE | 2017-05-02 19:15 | REP ---
CT abdomen and pelvis with IV but without oral contrast: History: Abdominal pain. History of liver carcinoma. The patient is status post trans arterial chemo embolization January 02, 2017, bead chemotherapy. Comparison CT study February 04, 2017. December 15, [address] images are also reviewed. CT contrast dose: 100 ml of intravenous Isovue [address] findings: Preliminary digital dispatcher service or work radiograph demonstrates calcific density in the right lobe of the liver. This corresponds to a branching pattern surrounding a nodule heterogeneously dense material in the central right lobe. This is felt to correspond to the area of treated at the cellular carcinoma. It is essentially unchanged from the February 04, 2017 prior study. There is some regional hepatic atrophy overlying this, although this is mild. There is a small amount of new ascites in the perihepatic space. No other focal liver lesion is seen. Spleen is unremarkable. There is an accessory splenule again noted. No adrenal lesion is seen. There are celiac axis lymph nodes noted. The largest of these is in the midline measuring 2.0 by 1.3 cm. This is essentially unchanged from December [address] study. No new adenopathy is appreciated. Pericholecystic fluid is seen. No gallstone is visible by CT. There is mild fluid around the head of the pancreas. No pancreatic pseudocyst or mass is seen. No retroperitoneal mass or adenopathy is observed. There is a small periumbilical hernia transmitting abdominal fat and a small quantity of fluid. No other abdominal wall defect is seen. There are dystrophic calcifications in the prostate gland. Urinary bladder is intact. Small and large intestinal bowel loops are unremarkable. The patient is status post prior appendectomy. Transpedicular screw kar fusion is seen L2 through L5. Impression: Status post trans arterial chemo embolization for central right lobe hepatic mass with hyperdense intravascular and intratumoral chemo embolization material. Essentially unchanged from February 04, 2017. New perihepatic ascites, small in amount. There is some fluid adjacent to the gallbladder and the pancreatic head. No gallstones seen by CT. There is a periumbilical hernia transmitting fluid and a small quantity of abdominal fat. Status post lumbar spine fusion. Appendix surgically absent. Otherwise negative. Signed by Orlando Beckford MD 05/02/2017 09:44 P
--- NOTE | 2017-05-02 20:20 | REPUSA ---
Clinical history: Right upper quadrant pain. Findings: The pancreas is limited in visualization secondary to overlying bowel gas, but appears viki sly unremarkable. The liver demonstrates uniform echotexture and echogenicity. There is a hyperechoic lesion in the right lobe measuring 2.3 x 2.6 cm. The gallbladder is unremarkable, but there is a tra ce amount of pericholecystic free fluid. The common bile duct measures 7 mm and is within normal limi ts. The right kidney measures 10.9 cm in length and is within normal limits. Impression: 1. Small amount of pericholecystic free fluid. No Cholelithiasis appreciated. 2. Hyperechoic lesion within the liver, likely representing a hemangioma. Follow-up is recommended as clinically indicated.
[2017-05-02] MEDS ORDERED: MORPHINE 4 MG/ML 1ML SYRINGE IV ONE (21:30)
[2017-05-02] MEDS ORDERED: PULM0.5S INH ×2 (23:04→23:08)
[2017-05-02] MEDS ORDERED: ONDANSETRON 4MG/2ML VIAL (J2405) IV PRN (23:45)
[2017-05-02] MEDS ORDERED: IBUPROFEN 200 MG TAB PO PRN (23:45)
[2017-05-03] MEDS ORDERED: MORPHINE 4 MG/ML 1ML SYRINGE IV PRN
[2017-05-03 01:00] VITALS: BP 111/55
[2017-05-03] MEDS: **hydrALAZINE HCL** 25 MG TAB PO SCH ×5 (01:34→21:00)
[2017-05-03] MEDS: ATORVASTATIN 20 MG TAB PO SCH ×2 (01:34→22:03)
[2017-05-03] MEDS: ALPRAZolam 0.25 MG TAB PO SCH ×2 (01:34→22:03)
[2017-05-03] MEDS: BUDESONIDE 0.5 MG/2 ML INHALATION SUSPENSION INH SCH ×2 (01:35→07:11)
[2017-05-03] MEDS: oxyCODONE 5MG TAB PO SCH ×4 (01:35→22:04)
[2017-05-03] MEDS: METOPROLOL TART 50 MG TAB PO SCH ×4 (01:36→17:44)
[2017-05-03] MEDS: NS 1,000 ML IV SCH (01:36)
--- NOTE | 2017-05-03 02:21 | REP ---
Clinical: Lower chest and right upper quadrant pain . Comparison: 02/05/2017 . Findings: The mediastinum and cardiac silhouette are stable and within normal limits for portable technique. The lung hirsch are clear without acute consolidation, effusion, or pneumothorax. Skeletal structures are intact. Impression: No acute cardiopulmonary process appreciated. Signed by Reyes Coe MD 05/02/2017 11:12 P
--- NOTE | 2017-05-03 02:50 | REPUSA ---
CLINICAL HISTORY: Abdominal pain. TECHNIQUE: Realtime sonographic images were obtained in multiple projections. Color doppler images we re obtained. COMMENTS: All vascular flow is in normal in dissection. Hepatic veins have normal waveform pattern. Portal vein have normal waveform pattern. Increased peak systolic velocity in the main hepatic artery with increased resistive index is estimat ed at 0.72. IMPRESSION: Increased peak systolic velocity in the main hepatic artery with increased resistive index. Thank you for your kind referral of this patient.
[2017-05-03 06:00] VITALS: BP 99/56
--- NOTE | 2017-05-03 06:12 | CR ---
DATE OF CONSULTATION: 05/02/2017 Consultation is being rendered in the emergency department. REASON FOR CONSULTATION: Abdominal pain. HISTORY OF PRESENT ILLNESS: The patient is a pleasant 67-year-old man with a fairly complex medical history. He apparently has a history of hepatitis C. He has cirrhosis secondary to the hepatitis C infection. In August 2016, while undergoing evaluation in preparation for a possible umbilical hernia repair, he was apparently discovered to have hepatocellular carcinoma arising in his cirrhotic liver. He apparently was evaluated in [place]. In November 2016, he underwent some sort of embolization procedure for his carcinoma. Then in December, he had radiation therapy delivered to the liver as well. He apparently was just very recently placed on the initial listing of the transplant list for a potential liver transplant. The patient reports that he has had some significant abdominal pain off and on during the course of his treatment. Over the last two weeks or so, he has had more severe abdominal pain primarily in the upper abdomen, but also just across fairly generally his mid abdomen. He had noted some nausea and vomiting and an episode of diarrhea recently. He was seen by his primary physician, Dr. Pedro, today in the clinic who referred him to the emergency department because of the severity of his abdominal pain. In the emergency department, he has undergone evaluation with laboratory studies, a CT scan of the abdomen and pelvis, and a gallbladder ultrasound. I was asked to see the patient, particularly with regard to the possibility of a gallbladder issue leading to his pain. MEDICATIONS: Currently Include doxycycline, albuterol nebulizers, oxycodone 15 mg three times daily, hydralazine, metoprolol tartrate, omeprazole, alprazolam, Lasix, hydrochlorothiazide, lisinopril, ibuprofen, amlodipine and atorvastatin. ALLERGIES: Allergies are reported to NITROGLYCERIN, PROPRANOLOL, PENICILLINS. PAST MEDICAL HISTORY: Medical history is significant for asthma/chronic obstructive pulmonary disease. He has hypertension and has coronary artery disease with a stent placed I believe in 2014. He has had hepatitis C with associated cirrhosis and now a diagnosis of hepatocellular carcinoma. He has a history of anxiety and depression. FAMILY HISTORY: His family medicine record suggests a possible history of congestive heart failure. PAST SURGICAL HISTORY: He had an umbilical hernia repair 30 years ago. He had an appendectomy in 1989. He has had lithotripsy for a stone in 2009. He had a lumbar laminectomy with a lumbar fusion in 2007. He had one cardiac stent placed in 2014. He had a colonoscopy in 2016. He has had angiography with embolization for his liver cancer in 2017. SOCIAL HISTORY: He is a former smoker. He denies any recent alcohol. He denies any recreational drug use. The patient is currently disabled and not employed. He is and accompanied to the hospital by his spouse. REVIEW OF SYSTEMS: He has not had any recent chest pain but he has had significant abdominal pain on and off recently, particularly over the last couple weeks. He usually has constipation associated with his narcotic use, but noted vomiting and diarrhea recently. He is not complaining of any significant bone or joint problems. He has no history of seizure or any recent stroke symptoms. PHYSICAL EXAMINATION: The patient is lying quietly on the emergency department stretcher. He is alert and cooperative. His most recent vital signs show a temperature of 98.7, pulse of 57 and blood pressure of 159/75. That was at the time of his check-in to the emergency department. Sclerae appear anicteric. Mucous membranes are moist. Heart shows a regular rhythm. Lungs show distant breath sounds bilaterally. The abdomen is perhaps mildly protuberant. He has a small hernia at the top of the umbilicus which protrudes to the left and this is soft and reducible. He does have active bowel sounds in all four quadrants. There is some tenderness to percussion across the entire upper abdomen and central portion of the abdomen. On palpation, he has moderate to marked tenderness across the right upper quadrant and epigastrium and less so in the left upper quadrant. There is some tenderness across the mid abdomen as well but not in the lower quadrants particularly. Most tender area seems to be right about in the mid epigastrium. Extremities show palpable pedal pulses and palpable radial pulses. LABORATORY DATA: Laboratory studies today show white count of three with a differential showing 60% neutrophils, 24% lymphocytes and 15% monocytes. His hemoglobin is 15 with a hematocrit of 46 and platelet count of 111,000. Chemistry panel shows normal electrolytes with BUN of nine, creatinine 0.7, and glucose of 87. Liver function tests show a minimal elevation of his AST to 86 and are otherwise normal. His total protein is 7.1 with an albumin of 3.0, and his amylase and lipase are 42 and 99 respectively. PT and INR are normal. IMAGING: His CT imaging shows some ascites fluid around the right lobe of the liver with some in the area of the gallbladder. There is some calcified material in the right lobe of the liver. This apparently corresponds to his hepatocellular carcinoma. The radiologist noted that this area seemed unchanged from a January 2017 scan. The radiologist felt that the spleen was unremarkable, though this seems somewhat prominent to me. There were no gallstones seen. Assessing the thickness of the gallbladder wall was difficult in the face of the ascites. The umbilical hernia was noted. The radiologist noted that the appendix was surgically absent. Gallbladder ultrasound done showed a small amount of pericholecystic free fluid but no cholelithiasis was seen. The gallbladder wall did not appear thickened and the common bile duct measured 7 mm. IMPRESSION: 1. Upper abdominal pain of unclear etiology. 2. Known hepatocellular carcinoma. 3. Cirrhosis secondary to hepatitis C. 4. Chronic obstructive pulmonary disease. 6. Atherosclerotic coronary artery disease. 7. Hypertension. RECOMMENDATIONS: At this point, I do not believe I have identified a surgical cause for his pain. He certainly has abnormalities of the liver partly related to the cancer and otherwise related to the treatment which included embolization and then radiation therapy. These treatments were all 4-5 months ago. His new ascites combined with his severe pain is concerning. It is unclear if this represents progression of his tumor or a response to his radiation therapy perhaps. I have also considered the possibility that there may be some degree of portal vein thrombosis, though I cannot say this definitively based on his current CT scan. Certainly there is no evident infection. He has a normal white count with a pretty normal differential. Platelet count is low, consistent I think with his known cirrhosis, and he probably has some degree of hypersplenism associated with this. I think it may be reasonable for the patient to be admitted for further evaluation by the medicine service. ANTONY
--- NOTE | 2017-05-03 06:35 | HPE ---
DATE OF ADMISSION: 05/02/2017 [facility]: [facility]. CHIEF COMPLAINT: Abdominal pain. HISTORY OF PRESENTATION: This is a 67-year-old with history of hepatocellular carcinoma who presents with two weeks of abdominal pain that is mainly right sided. He does not have any good words that describes it. He calls it painful, at times crampy. It has been getting worse over the last few weeks. He told his about it. She encouraged him to seek medical care. He went to [facility] today and was sent to the emergency department via ambulance for possible acute abdomen. Work up was begun. He was seen by Dr. Castillo who thought it was not a surgical abdomen and I was called for admission. He has had nausea and diarrhea over the last few days. He says that he "power puked" and also passed watery diarrhea that felt like "hot water". He has not been on antibiotics since January of this year. He does not use well water. No recent travel. PAST MEDICAL HISTORY: Notable for chronic hepatitis C, cirrhosis, hepatocellular carcinoma status post transarterial chemoembolization (TACE) procedure in September 2016 and he underwent radiation treatment in December 2016, hypertension, atrial fibrillation, coronary artery disease status post myocardial infarction and stent, congestive heart failure with preserved left ventricular ejection fraction, chronic obstructive pulmonary disease (COPD), kidney stones, history of hemorrhagic CVA. ALLERGIES: - NITROGLYCERIN - PENICILLIN - PROPRANOLOL, but he takes metoprolol SURGICAL HISTORY: Notable for umbilical hernia repair, appendectomy, extracorporal shockwave lithotripsy (ESWL), lumbar laminectomy, cardiac stent, colonoscopy, placement of chemotherapy beads for hepatocellular carcinoma, radiation therapy. MEDICATIONS AT HOME (Listed as): - albuterol - DuoNebs - hydrochlorothiazide 12.5 mg by mouth daily - Xanax 0.25 mg by mouth at bedtime - Norvasc 5 mg by mouth daily - atorvastatin 20 mg by mouth at bedtime - Pulmicort 0.5 inhaled twice a day - Lasix 20 mg daily - hydralazine 25 mg by mouth four times a day - Motrin 400 mg every 6 hours as needed - lisinopril 40 mg by mouth at bedtime - metoprolol tartrate 100 mg by mouth twice a day - omeprazole 20 mg by mouth daily - oxycodone 15 mg by mouth three times a day FAMILY HISTORY: Notable for both parents are . SOCIAL HISTORY: He continues to smoke. He had previously quit. He has been using a nicotine patch. He does not use alcohol. , is at bedside. REVIEW OF SYSTEMS: Notable for no headache, no visual changes, no runny nose, no sore throat, no cough, no chest pain, no shortness of breath, no change in his urinary habits. He does have some loose stools. Sometimes he is constipated due to the opiate use. No focal weakness. He has a history of stroke. Otherwise unremarkable. PHYSICAL EXAMINATION: Temperature 98.7. Pulse 57. Respiratory rate 18. Blood pressure 159/75. He is awake, appropriately interactive, pleasantly conversant, somewhat agitated and frustrated appearing at being in the hospital. Head is normocephalic. Sinuses are nontender. Pupils are equally round and reactive. Sclerae anicteric. Mucous membranes moist. Neck supple. Breathing is symmetrical, rested. I:E ratio 1:3. No wheezes, rales or rhonchi. No costovertebral angle (CVA) tenderness. No sacral edema. Abdomen is somewhat tender, especially on the right with a palpable liver. He has an umbilical hernia which is easily reduced and nontender. No rebound. No guarding. No fluid wave. He has trace bilateral lower extremity pitting edema. He is moving all four extremities. Cranial nerves II-XII grossly intact. Normal mood and affect. White cell count 3.3, hemoglobin 15 and platelets of 111. INR is 1.06. BUN 9, creatinine 0.69, total bilirubin 0.8, direct bilirubin 0.2, AST 86, ALT 70, alkaline phosphatase 104, albumin 3. Blood cultures pending. CT of the abdomen and pelvis is discussed with Dr. Castillo. There is a small amount of perihepatic ascites. Gallbladder ultrasound shows a small amount of pericholecystic free fluid. No cholelithiasis. ASSESSMENT: 67-year-old with ongoing abdominal pain on unclear etiology. PLAN: 1. Gastrointestinal (GI). The patient will be admitted to observation status pending further workup and treatment. Pain will be managed with his home dose of OxyContin with morphine as needed for breakthrough. Will get a Doppler of his liver to look for evidence of portal vein thrombosis. Continue to monitor him clinically. The patient has been seen by surgery in the emergency department. 2. Patient has history of hepatocellular carcinoma secondary to chronic hepatitis C with cirrhosis. 3. Patient has had loose stools. Will send a GI panel with his next stool. 4. Patient has history of coronary artery disease, congestive heart failure with diastolic dysfunction and myocardial infarction. Continue with statin drug and his blood pressure medications with hold parameters. 5. Deep vein thrombosis (DVT) prophylaxis will be mechanical. 6. Patient is using nicotine patch currently for smoking cessation which will be continued. 7. Patient will be signed out to Dr. White in the morning.
[2017-05-03 06:58] LABS: BASO % 0.4 % (0.0-1.0); EOS % 0.8 % (0.0-3.0); IMMATURE GRANULOCYTE % 0.4 % (0-0); LYMPH # 0.6 10^3/uL (1.5-4.5); LYMPH % 22.3 % (24.0-44.0); MEAN CORPUSCULAR HEMOGLOBIN 28.1 pg (27.0-33.0); MEAN CORPUSCULAR HGB CONC 33.1 g/dl (32.0-36.5); MEAN CORPUSCULAR VOLUME 84.9 fl (80.0-96.0); MONO # 0.4 10^3/uL (0.0-0.8); MONO % 17.2 % (0.0-5.0); NEUTROPHILS # 1.5 10^3/uL (1.8-7.7); NEUTROPHILS % 58.9 % (36.0-66.0); WHITE BLOOD COUNT 2.6 10^3/uL (4.0-10.0)
[2017-05-03 07:28] LABS: ALBUMIN 2.5 GM/DL (3.2-5.2); ALBUMIN/GLOBULIN RATIO 0.68 (1.00-1.93); ALKALINE PHOSPHATASE 96 U/L (45-117); ALT/SGPT 64 U/L (12-78); ANION GAP 8 MEQ/L (8-16); AST/SGOT 87 U/L (7-37); BILIRUBIN,TOTAL 1.2 MG/DL (0.2-1.0); BLOOD UREA NITROGEN 8 MG/DL (7-18); CALCIUM LEVEL 7.9 MG/DL (8.8-10.2); CARBON DIOXIDE LEVEL 27 MEQ/L (21-32); CHLORIDE LEVEL 107 MEQ/L (98-107); CREATININE FOR GFR 0.73 MG/DL (0.70-1.30); GLOMERULAR FILTRATION RATE > 60.0 (>49); GLUCOSE, FASTING 80 MG/DL (80-110); MAGNESIUM LEVEL 1.9 MG/DL (1.8-2.4); POTASSIUM SERUM 3.9 MEQ/L (3.5-5.1); SODIUM LEVEL 142 MEQ/L (136-145); TOTAL PROTEIN 6.2 GM/DL (6.4-8.2)
[2017-05-03 07:45] LABS: IMMATURE PLATELET FRACTION % 5.4 % (0.0-10.9); PLATELET COUNT, AUTOMATED 81 10^3/uL (150-450)
--- NOTE | 2017-05-03 08:43 | ECGEPIP ---
Stationary ECG Study 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
[2017-05-03] MEDS: OMEPRAZOLE 20 MG CAP PO SCH (09:04)
[2017-05-03] MEDS: FUROSEMIDE 20 MG TAB PO SCH (09:06)
[2017-05-03] MEDS: NICOTINE 7 MG/24 HR TRANSDERMAL TD SCH (09:07)
[2017-05-03] MEDS ORDERED: ONDANSETRON 4 MG ORAL DISINTEGRATING TAB (S0181) PO PRN (11:45)
[2017-05-03] MEDS ORDERED: amLODIPine 5 MG TAB PO SCH (12:00)
--- NOTE | 2017-05-03 13:51 | IPN ---
DATE OF EXAMINATION: 05/03/2017 SUBJECTIVE: The patient tells me that he is still having right upper quadrant abdominal pain. It is not significantly different than the previous day. He tells me that he has not had any further episodes of nausea, vomiting, or diarrhea. He tells me that he is able to tolerate a liquid diet and was able to stay down. Otherwise, he has no complaints. OBJECTIVE: VITAL SIGNS: Temperature 98.1. Pulse 57. Respiratory rate 16. Blood pressure (BP) 131/60. Oxygen (O2) saturation 92% on room air. GENERAL: He is an elderly man lying in bed at a 30-degree angle, accompanied by his . He does not appear to be in any acute distress. HEENT: Cranial nerves II-XII are grossly intact. He has moist mucous membranes. No elevation in central venous pressure (CVP). CARDIOVASCULAR EXAMINATION: S1, S2. Regular. RESPIRATORY EXAMINATION: Is clear. ABDOMINAL EXAMINATION: Is obese. There is mild distention. There is some prominence of his varicosities. There is tenderness in the right upper quadrant. EXTREMITIES: No clubbing, cyanosis. Trace edema. LABORATORY STUDIES: WBC 2.6 down from 3.3, hemoglobin 12.6, hematocrit 38.1, platelet count 81 down from 111. Chemistry panel: Sodium 142, potassium 3.9, chloride 107, bicarbonate 27, BUN 8, creatinine 0.7, magnesium 1.9, AST elevated at 87, ALT 64, lipase within normal limits. INR is 1.0. Blood cultures are currently pending. IMAGING: Chest x-ray: No acute cardiopulmonary process. Doppler ultrasound: Increased peak systolic velocity in the main hepatic artery with increased resistive index. Gallbladder ultrasound: Small amount of pericholecystic free fluid. Hyperechoic lesion within the liver, likely representing a hemangioma. Followup is recommended. CT of the abdomen and pelvis: Status post transarterial chemo embolization for central right lobe hepatic mass with hyperdense intravascular and intratumoral chemo embolization material. Essentially unchanged from 02/04/2017. New perihepatic ascites, small in amount. There is some fluid adjacent to the gallbladder and the pancreatic head. No gallstones. Appendix surgically absent. ASSESSMENT AND PLAN: This is a 67-year-old man with a history of hepatocellular carcinoma, status post embolization, chemo beads, radiation, who presents with 2 weeks of progressively worsening abdominal pain of unclear etiology. PROBLEMS: 1. Abdominal pain. Imaging thus far has been negative. Will defer to Dr. Castillo to review Doppler of the liver, but now obvious thrombus or tumor progression. He has small hemangiomas, which he has been made aware of previously. He is currently on a transplant list. I can only assume that his pain is associated with chemotherapy beads and radiation. Hopefully, of tumor cells as similar to a delayed postembolization syndrome, although it is quite late, given the timeline of his interventions. For the time being, he is tolerating by mouth. I will advance him to a bananas, rice, applesauce, toast (BRAT) diet. He will be monitored with antiemetics and pain medication by mouth. If he is able to tolerate this, I suspect he could potentially be discharged home as early as tomorrow with close followup at his transplant center and his oncologist and interventional radiologist in [place] and [place] at [facility]. 2. Vomiting and diarrhea. He has not had any episodes since Tuesday. My suspicion for a gastroenteritis at the onset of this is . I think it is highly but appears to have already run its course. 3. Coronary artery disease with diastolic dysfunction. He is on a statin, angiotensin-converting enzyme (JV) inhibitor, beta yamil. He is not on aspirin. Defer to his outpatient providers. 4. Hypertension, controlled with lisinopril, Norvasc, and metoprolol. The patient is on hydralazine. 5. Gastroesophageal reflux disease. He is on omeprazole. 6. Congestive heart failure. He is mildly volume overloaded. He has been receiving IV fluids, which I will discontinue. Continue with Lasix. 7. Tobacco abuse. He is continued with a nicotine patch while in the hospital. DISPOSITION: Pending clinical improvement, his ability to tolerate by mouth, and pain to be able to be controlled by mouth. Previously, when in the hospital, the patient has elected to leave the hospital against medical advice. I had a lengthy discussion with him advising him against that during this stay.
[2017-05-03 14:00] VITALS: BP 111/55
[2017-05-03] MEDS ORDERED: LISINOPRIL 40 MG TAB PO SCH (21:00)
[2017-05-03 22:00] VITALS: BP 119/63
[2017-05-04] MEDS: METOPROLOL TART 50 MG TAB PO SCH ×2 (05:46)
[2017-05-04 06:00] VITALS: BP 130/67
[2017-05-04] MEDS: BUDESONIDE 0.5 MG/2 ML INHALATION SUSPENSION INH SCH ×2 (08:00→08:55)
[2017-05-04 08:01] LABS: BASO % 0.4 % (0.0-1.0); EOS % 0.7 % (0.0-3.0); LYMPH # 0.8 10^3/uL (1.5-4.5); LYMPH % 27.9 % (24.0-44.0); MEAN CORPUSCULAR HEMOGLOBIN 27.7 pg (27.0-33.0); MONO # 0.5 10^3/uL (0.0-0.8); MONO % 16.4 % (0.0-5.0); NEUTROPHILS # 1.5 10^3/uL (1.8-7.7); NEUTROPHILS % 54.6 % (36.0-66.0); RED CELL DISTRIBUTION WIDTH 14.8 % (11.5-14.5); WHITE BLOOD COUNT 2.8 10^3/uL (4.0-10.0)
[2017-05-04 08:05] LABS: IMMATURE PLATELET FRACTION % 4.8 % (0.0-10.9); PLATELET COUNT, AUTOMATED 89 10^3/uL (150-450); PLATELET F 3.9
[2017-05-04 08:10] LABS: INR 1.1
[2017-05-04 08:24] LABS: ALBUMIN 2.8 GM/DL (3.2-5.2); ALBUMIN/GLOBULIN RATIO 0.72 (1.00-1.93); ALKALINE PHOSPHATASE 116 U/L (45-117); ALT/SGPT 70 U/L (12-78); ANION GAP 3 MEQ/L (8-16); AST/SGOT 81 U/L (7-37); BILIRUBIN,TOTAL 0.9 MG/DL (0.2-1.0); BLOOD UREA NITROGEN 8 MG/DL (7-18); CARBON DIOXIDE LEVEL 33 MEQ/L (21-32); CHLORIDE LEVEL 105 MEQ/L (98-107); CREATININE FOR GFR 0.76 MG/DL (0.70-1.30); GLOMERULAR FILTRATION RATE > 60.0 (>49); GLUCOSE, FASTING 88 MG/DL (80-110); MAGNESIUM LEVEL 2.3 MG/DL (1.8-2.4); POTASSIUM SERUM 3.9 MEQ/L (3.5-5.1); SODIUM LEVEL 141 MEQ/L (136-145); TOTAL PROTEIN 6.7 GM/DL (6.4-8.2)
[2017-05-04] MEDS ORDERED: IBUPROFEN 400 MG TAB PO PRN (08:45)
[2017-05-04] MEDS: oxyCODONE 5MG TAB PO SCH (08:58)
[2017-05-04 08:59] VITALS: BP 130/67
[2017-05-04] MEDS: FUROSEMIDE 20 MG TAB PO SCH (08:59)
[2017-05-04] MEDS: **hydrALAZINE HCL** 25 MG TAB PO SCH (08:59)
[2017-05-04] MEDS: OMEPRAZOLE 20 MG CAP PO SCH (08:59)
[2017-05-04] MEDS: NICOTINE 7 MG/24 HR TRANSDERMAL TD SCH (08:59)
[2017-05-04] MEDS ORDERED: ONDA4TAB6 PO (10:27)
--- NOTE | 2017-05-04 13:55 | DSES ---
DATE OF ADMISSION: 05/02/2017 DATE OF DISCHARGE: 05/04/2017 PRIMARY CARE PROVIDER: Rajwinder Pedro TRANSPLANT CENTER: [facility]. FINAL DIAGNOSES: 1. Abdominal pain. 2. Nausea, vomiting, diarrhea. 3. Coronary artery disease. 4. Hypertension. 5. Gastroesophageal reflux disease (GERD). 6. Congestive heart failure. 7. Smoking. HISTORY OF PRESENT ILLNESS: This is a 67-year-old patient with underlying history of hepatocellular carcinoma presented with 2 weeks of abdominal pain that is mainly right-sided. Does not have good word to describe it. He calls it painful at times and crampy. It seems to be getting worse over the last few weeks. He told his about it, who encouraged him to seek medical care. He went to [facility] and was sent to the emergency room via ambulance for possible acute abdomen. Workup has begun. Surgery, Dr. Castillo was consulted who had provided patient in the emergency room. Patient had nausea and diarrhea over the last few days. Says that it was watery. Patient has not been on antibiotics since January of this year. No recent travel. Does not use well water. HOSPITAL COURSE: Patient was admitted to the hospital. Surgery was consulted. CT of the abdomen appreciated. Ultrasound of gallbladder appreciated as well as hepatic ultrasound with Doppler appreciate. Gastrointestinal (GI) panel has been negative. As per Dr. Castillo, nothing surgical is indicated based on the studies. Possible etiology include abdominal pain due to history of hepatic embolization. Patient's liver function was monitored. Intravenous (IV) fluids initially given. Diet was later advanced. Patient's transplant center was updated regarding patient's condition. Patient progressive improved, currently tolerating her diet and was anxious to be discharged. During the hospital course, patient has refused blood work draw this morning. After counseling, patient was agreeable to repeat blood draws, which shows no significant change compared to previous. Currently, patient tolerating orally with minimal symptoms. Ready for discharge for further care as outpatient. VITAL SIGNS: Temperature 98.2. Pulse 58. Respirations 18. Blood pressure 130/67. Pulse oximetry 99% on room air. GENERAL: Patient alert, comfortable, obese, in no acute in distress. HEENT: Normocephalic, atraumatic. PULMONARY: Bilateral clear to auscultation. CARDIAC: Regular rhythm, S1, S2. ABDOMEN: Obese, mild discomfort with palpation. No rebound. No guarding. Positive bowel wounds. EXTREMITIES: No clubbing, cyanosis or edema. LABORATORY: WBC 2.8, hemoglobin and hematocrit 13.7/41.5, platelets 89. Chemistry: Sodium 141, potassium 3.9, chloride 105, bicarbonate 33, BUN 8, creatinine 0.76. DISCHARGE MEDICATION: - Zofran 4 mg by mouth every 6 hours as needed Patient's home medication were continued: - Ventolin inhalers every 4 hours as needed - DuoNebs four times a day as needed - Xanax 0.25 mg by mouth nightly - Norvasc 5 mg by mouth daily - Lipitor 20 mg by mouth nightly - Pulmicort 0.5 mg inhalation twice a day - Lasix 20 mg by mouth daily - hydralazine 25 mg by mouth four times a day - hydrochlorothiazide 12.5 mg by mouth daily - Motrin 400 mg every 6 hours as needed - lisinopril 40 mg by mouth nightly - metoprolol 100 mg by mouth twice a day - Prilosec 20 mg by mouth daily - oxycodone 15 mg by mouth three times a day DISCHARGE INSTRUCTIONS: Patient was instructed to followup with primary care provider in 7 days. Followup with transplant center at [facility]. Patient already has an appointment in May. Return to the hospital if symptoms worsen.
== END 2017-05-04 11:45 | disposition home or self-care (01) ==
LOC: M ED 16:08 → EDBD 16:08 → M ED INP 23:32 → M MS5PR 05-03 01:05
PROVIDERS: ADMIT Internal Medicine; ATTEND Hospitalist
DX: R10.9 Unspecified abdominal pain (principal); R11.2 Nausea with vomiting, unspecified; R19.7 Diarrhea, unspecified; I25.10 Atherosclerotic heart disease of native coronary artery without angina pectoris; I11.0 Hypertensive heart disease with heart failure; K21.9 Gastro-esophageal reflux disease without esophagitis; I50.30 Unspecified diastolic (congestive) heart failure; F17.210 Nicotine dependence, cigarettes, uncomplicated; C22.0 Liver cell carcinoma; B18.2 Chronic viral hepatitis C; K74.60 Unspecified cirrhosis of liver; I48.91 Unspecified atrial fibrillation; I25.2 Old myocardial infarction; Z95.5 Presence of coronary angioplasty implant and graft; J44.9 Chronic obstructive pulmonary disease, unspecified; F32.9 Major depressive disorder, single episode, unspecified; F41.9 Anxiety disorder, unspecified; Z86.73 Personal history of transient ischemic attack (TIA), and cerebral infarction without residual deficits; Z92.3 Personal history of irradiation; Z79.899 Other long term (current) drug therapy; Z79.51 Long term (current) use of inhaled steroids; Z79.891 Long term (current) use of opiate analgesic; Z88.0 Allergy status to penicillin; Z88.8 Allergy status to other drugs, medicaments and biological substances
CPT/HCPCS: 36415; 71010; 74177; 76705; 80048; 80053; 80076; 82150; 83690; 83735; 85025; 85049; 85055; 85610; 87040; 87507; 93005; 93041; 93975; 94640; 96374; 96375; 96376; 99285; G0378; J2405; Q9967

== ENCOUNTER → 2017-07-01 | Outpatient (REF) | payer MEDICARE, OTHER ==
[2017-07-01 17:47] LABS: ALPHA FETOPROTEIN TUMOR QUANT 9.8 NG/ML (<8.1)
== END ==
LOC: M SFHCLERA 10:43
DX: C22.0 Liver cell carcinoma (principal)
CPT/HCPCS: 82105

== ENCOUNTER → 2017-07-11 | Outpatient (REF) | payer MEDICARE, OTHER ==
[2017-07-11 20:50] LABS: ALBUMIN 3.2 GM/DL (3.2-5.2); ANION GAP 5 MEQ/L (8-16); BLOOD UREA NITROGEN 12 MG/DL (7-18); CALCIUM LEVEL 8.5 MG/DL (8.8-10.2); CARBON DIOXIDE LEVEL 32 MEQ/L (21-32); CHLORIDE LEVEL 105 MEQ/L (98-107); CREATININE FOR GFR 0.88 MG/DL (0.70-1.30); GLOMERULAR FILTRATION RATE > 60.0 (>49); GLUCOSE, FASTING 88 MG/DL (70-100); PHOSPHORUS LEVEL 3.8 MG/DL (2.5-4.9); POTASSIUM SERUM 4.3 MEQ/L (3.5-5.1); SODIUM LEVEL 142 MEQ/L (136-145)
== END ==
LOC: M SFHCLERA 16:03
DX: C22.0 Liver cell carcinoma (principal); J02.9 Acute pharyngitis, unspecified
CPT/HCPCS: 80069

== ENCOUNTER → 2017-10-24 | Outpatient (REF) | payer MEDICARE, OTHER ==
[2017-10-25 08:30] LABS: ALPHA FETOPROTEIN TUMOR QUANT 8.4 NG/ML (<8.1)
== END ==
LOC: M SFHCLERA 15:11
DX: C22.0 Liver cell carcinoma (principal)
CPT/HCPCS: 82105

== ENCOUNTER → 2017-11-09 | Outpatient (REF) | payer MEDICARE, OTHER ==
[2017-11-09 16:30] LABS: ANION GAP 8 MEQ/L (8-16); BLOOD UREA NITROGEN 26 MG/DL (7-18); CALCIUM LEVEL 8.3 MG/DL (8.8-10.2); CARBON DIOXIDE LEVEL 33 MEQ/L (21-32); CHLORIDE LEVEL 103 MEQ/L (98-107); CREATININE FOR GFR 1.03 MG/DL (0.70-1.30); GLOMERULAR FILTRATION RATE > 60.0 (>49); GLUCOSE, FASTING 141 MG/DL (70-100); POTASSIUM SERUM 4.3 MEQ/L (3.5-5.1); SODIUM LEVEL 144 MEQ/L (136-145)
== END ==
LOC: M SFHCLERA 13:58
DX: R18.0 Malignant ascites (principal)
CPT/HCPCS: 80048